=== PATIENT | female | born 1955 | race Caucasian/White ===

== ENCOUNTER → 2019-05-19 13:58 | Outpatient (BNVA) | payer OTHER, SELFPAY | PROVIDERS: Family Provider Nurse Practitioner Family; PCP Nurse Practitioner Family; Visit Provider Nurse Practitioner Family | DX: E07.9 Disorder of thyroid, unspecified (principal) | CPT/HCPCS: 84443 ==

== ENCOUNTER 2019-05-31 11:58 | Outpatient (CLI) | payer OTHER, SELFPAY ==
[2019-05-31 12:38] LABS: Basophils % 0.7 %; Eosinophils # 0.2 10^3/uL (0.0-0.8); Eosinophils % 5.4 %; Hemoglobin 11.2 g/dL (11.5-15.3); Lymphocytes # 0.6 10^3/uL (0.8-4.8); Lymphocytes % 13.3 %; Mean Corpuscular HGB Conc 30.3 g/dL (30.0-36.0); Mean Corpuscular Hemoglobin 27.9 pg (28.0-34.0); Mean Corpuscular Volume 92.3 fL (81-99); Mean Platelet Volume 10.2 fL (7.4-10.4); Monocytes # 0.5 10^3/uL (0.2-0.9); Monocytes % 11.3 %; Neutrophils # 3.1 10^3/uL (1.8-7.7); Neutrophils % 69.1 %; Nucleated Red Blood Cells % 0 %; Platelet Count 155 10^3/cmm (130-400); Red Blood Count 4.01 10^6/uL (4.1-5.3); Red Cell Distribution Width 15.3 % (12.1-15.1); White Blood Count 4.4 10^3/uL (4.0-10.0)
[2019-05-31 12:43] LABS: Alanine Aminotransferase 11 U/L (0-33); Alkaline Phosphatase 90 IU/L (35-105); Anion Gap 13.9 (5-19); Aspartate Amino Transferase 22 U/L (0-32); Blood Urea Nitrogen 17 mg/dL (8-23); Calcium 9.8 mg/Dl (8.8-10.2); Carbon Dioxide 28 mmol/L (22-29); Chloride 103 mmol/L (98-107); Globulin 2.5 g/dL (1.3-4.6); Glomerular Filtration Rate 55.8 mL/min (90-130); Glucose 90 mg/dL (74-106); Potassium 3.9 mmol/L (3.5-5.1); Sodium 141 mmol/L (136-145); Total Bilirubin 0.2 mg/dL (0.15-1.2); Total Protein 6.5 g/dL (6.6-8.7)
--- NOTE | 2019-05-31 16:36 | ONC FU_ITS ---
Dr. Prince follow up note Patient: Maryana Downs Unit #: [id number]: 1955 Dicatated By: Jose A Prince M.D.Date of Visit:May 31, 2019 Onc Med Follow-up/Prog Note History of Present Illness: Mrs. Maryana Downs, is a 64-year-old female, recently underwent colonoscopy examination on March 28 which showed in sigmoid colon at 55 centimeters there was a circumferential obstructive mass, beyond this the colonoscopy could not be advanced and biopsy was obtained which confirmed adenocarcinoma subsequently on 04/05/2019 she underwent laparoscopic sigmoid colectomy with end to end anastomosis and final pathology report confirmed infiltrating adenocarcinoma, low-grade, focal penetration through muscularis propria into superficial serosal connective tissue, tumor size 5 x 3 x 1 cm with clear surgical margins T3 and 0 out of 9 lymph node examined showed metastatic disease N0, positive lymphovascular invasion but no venous invasion seen. MSI/MMR status was ordered Came for follow-up, denies any specific complaints, no fever or chills, no nausea or vomiting, no diarrhea constipation, no jaundice. Patient was referred to [facility] but second opinion regarding clinical trials but patient decided not to go and also decided not consider adjuvant chemotherapy. She is here to discuss follow-up plan. Medications: B-12 2 Tablet (of 500 mcg) Oral daily, Levothyroxine Sodium 1 Tablet (of 50 mcg) Oral daily, Pycnogenol 2 Tablet (of 100 mg) Capsule Oral daily, Vitamin C 1 Capsule Oral daily Allergies: No Known Allergies. Review of Systems: Constitutional - Appetite is good, weight is stable. No fever, chills or night sweats. Positive for hot flashes. Energy level is good, ENMT - No sinus congestion/drainage. No mouth sores. No sore throat or difficulty swallowing, Hematologic/Lymphatic - No abnormal bruising or bleeding, Respiratory - No shortness of breath. No cough. No pleuritic pain or hemoptysis, Cardiovascular - No angina pain. No palpitations, Gastrointestinal - No nausea or vomiting. No heartburn or acid reflux. Positive for diarrhea, no constipation. No blood in the stool or black stools, Genitourinary (F) - No dysuria or hematuria. No urinary frequency. No urgency or incontinence, Musculoskeletal - No joint or bone pain, Neurologic - No headache or dizziness. No numbness/paresthesias or other focal neurologic symptoms, Psychiatric - No anxiety or depression. No insomnia. Vital Signs: Performed on May 31, 2019 13:38 Height - 59.00 in Weight - 187.4 lbs (HIGH) BSA - 1.79 sq.m BMI - 37.85 (HIGH) Temperature - 99.3 F (HIGH) Pulse - 77 /min Respiration - 20 /min BP - 108/61 mm(hg) O2 Sat - 98 % Pain - 0 Performance Status: 0 - Fully active, able to carry on all predisease activities without restrictions. (ECOG) Physical Examination: Respiratory - Lungs are clear to auscultation without rhonchi or wheezing, Cardiovascular - Regular rate and rhythm of heart, Abdomen - Non-tender, non-distended, Good bowel sounds. No guarding or rebound tenderness. No pulsatile masses, Extremities - no edema. Lab/Imaging: Most recent lab results are not available for this patient. Impression: infiltrating adenocarcinoma involving sigmoid colon status post laparoscopic sigmoidectomy done on 04/05/2019 Final pathology report showed low-grade, focal penetration through muscularis propria into superficial serosal connective tissues, clear surgical margin, tumor size 5 x 3 x 1 cm pT3 0/9 lymph node showed metastatic disease pN0 Lymphovascular invasion seen, but no venous invasion seen Colonoscopy examination done on 03/28/2019 shows near obstructive lesion, scope could not advance beyond the lesion CT scan of abdomen pelvis done on 03/30/2019 showed extensive diverticulosis of lower descending colon and sigmoid colon no definite tumor was seen , liver was unremarkable Stage IIA (T3, N0 Mx) high risk, (being near obstructive lesion at the time of presentation, lymphovascular invasion present, 9 instead of 12 lymph node were removed and examined.) Plan: Discussed with patient regarding her labs white blood count 4.4 hemoglobin 11.2 crit 37 platelets 155,000 CMP within normal limits Clinically, patient is doing well with no signs symptoms suggestive of recurrence of disease. Patient was offered adjuvant chemotherapy for being high risk e.g. near obstructive lesion at presentation, lymphovascular involvement, 9 instead of 12 lymph nodes were examined showed no metastatic disease. Patient declined adjuvant chemotherapy, and she was referred to GI oncology at [facility] in [place] for second opinion regarding clinical trial for high risk stage II colon cancer patient declined that too and decided not to pursue any adjuvant therapy rather consider observation alone. Today we have discussion again and now she agreed to go to GI oncology at [facility] for evaluation for clinical trial or second opinion. Next Return to clinic 1 week after her visit to [place] Signed By: Jose A Prince M.D. <<Signature on File>>
== END 2019-05-31 11:59 | disposition home or self-care (01) ==
LOC: ONCMED 12:02
PROVIDERS: Family Provider Nurse Practitioner Family; PCP Nurse Practitioner Family; Visit Provider Internal Medicine Hematology & Oncology
DX: C18.7 Malignant neoplasm of sigmoid colon (principal); Z90.49 Acquired absence of other specified parts of digestive tract
CPT/HCPCS: 36415; 80053; 85025; G0463

== ENCOUNTER 2019-06-28 15:39 | Outpatient (CLI) | payer OTHER, SELFPAY ==
[2019-06-28 15:54] LABS: Basophils % 0.5 %; Eosinophils # 0.3 10^3/uL (0.0-0.8); Eosinophils % 5.7 %; Hematocrit 37.6 % (37.0-47.0); Hemoglobin 11.7 g/dL (11.5-15.3); Lymphocytes % 17.7 %; Mean Corpuscular HGB Conc 31.1 g/dL (30.0-36.0); Mean Corpuscular Hemoglobin 27.5 pg (28.0-34.0); Mean Corpuscular Volume 88.3 fL (81-99); Mean Platelet Volume 9.8 fL (7.4-10.4); Monocytes # 0.6 10^3/uL (0.2-0.9); Monocytes % 10.1 %; Neutrophils # 3.7 10^3/uL (1.8-7.7); Neutrophils % 65.8 %; Nucleated Red Blood Cells % 0 %; Platelet Count 197 10^3/cmm (130-400); Red Blood Count 4.26 10^6/uL (4.1-5.3); Red Cell Distribution Width 14.6 % (12.1-15.1); White Blood Count 5.6 10^3/uL (4.0-10.0)
[2019-06-28 16:15] LABS: Alanine Aminotransferase 9 U/L (0-33); Albumin Level 4.2 g/dL (3.5-5.2); Alkaline Phosphatase 82 IU/L (35-105); Anion Gap 14.8 (5-19); Aspartate Amino Transferase 17 U/L (0-32); Blood Urea Nitrogen 20 mg/dL (8-23); Calcium 9.9 mg/dL (8.5-10.5); Carbon Dioxide 29 mmol/L (22-29); Chloride 102 mmol/L (98-107); Globulin 2.7 g/dL (1.3-4.6); Glomerular Filtration Rate 84.2 mL/min (90-130); Glucose 84 mg/dL (65-115); Potassium 3.8 mmol/L (3.5-5.1); Sodium 142 mmol/L (136-145); Total Bilirubin 0.2 mg/dL (0.15-1.2); Total Protein 6.9 g/dL (6.6-8.7)
--- NOTE | 2019-06-28 16:58 | ONC FU_ITS ---
Dr. Prince follow up note Patient: Maryana Downs Unit #: [id number]: 1955 Dicatated By: Jose A Prince M.D.Date of Visit:Jun 28, 2019 Onc Med Follow-up/Prog Note History of Present Illness: Mrs. Maryana Downs, is a 64-year-old female, recently underwent colonoscopy examination on March 28 which showed in sigmoid colon at 55 centimeters there was a circumferential obstructive mass, beyond this the colonoscopy could not be advanced and biopsy was obtained which confirmed adenocarcinoma subsequently on 04/05/2019 she underwent laparoscopic sigmoid colectomy with end to end anastomosis and final pathology report confirmed infiltrating adenocarcinoma, low-grade, focal penetration through muscularis propria into superficial serosal connective tissue, tumor size 5 x 3 x 1 cm with clear surgical margins T3 and 0 out of 9 lymph node examined showed metastatic disease N0, positive lymphovascular invasion but no venous invasion seen. MSI/MMR status intact Finally patient went to [facility] for second opinion and saw Dr. John Torrez on 06/23/2019 and she recommended adjuvant chemotherapy with 4 cycles of CAPOX but patient refused oxaliplatin but agreed for Xeloda alone. Came for follow-up, denies any specific complaints, no fever or chills, no nausea or vomiting, no diarrhea constipation, no jaundice or abdominal pain. Patient said she is scheduled for follow-up colonoscopy in July 2019 as initial colonoscopy was a poor prep. Medications: B-12 2 Tablet (of 500 mcg) Oral daily, Levothyroxine Sodium 1 Tablet (of 50 mcg) Oral daily, Pycnogenol 2 Tablet (of 100 mg) Capsule Oral daily, Vitamin C 1 Capsule Oral daily Allergies: No Known Allergies. Review of Systems: Constitutional - Appetite is good, weight is stable. No fever, chills or night sweats. Positive for hot flashes. Energy level is good, ENMT - No sinus congestion/drainage. No mouth sores. No sore throat or difficulty swallowing, Hematologic/Lymphatic - No abnormal bruising or bleeding, Respiratory - No shortness of breath. No cough. No pleuritic pain or hemoptysis, Cardiovascular - No angina pain. No palpitations, Gastrointestinal - No nausea or vomiting. No heartburn or acid reflux. Positive for diarrhea, no constipation. No blood in the stool or black stools, Genitourinary (F) - No dysuria or hematuria. No urinary frequency. No urgency or incontinence, Musculoskeletal - No joint or bone pain, Neurologic - No headache or dizziness. No numbness/paresthesias or other focal neurologic symptoms, Psychiatric - No anxiety or depression. No insomnia. Vital Signs: Performed on Jun 28, 2019 15:58 Height - 59.00 in Weight - 184.8 lbs (LOW) BSA - 1.78 sq.m BMI - 37.33 (HIGH) Temperature - 98.8 F Pulse - 65 /min Respiration - 14 /min BP - 95/56 mm(hg) O2 Sat - 97 % Pain - 0 Fatigue - 1 Performance Status: 0 - Fully active, able to carry on all predisease activities without restrictions. (ECOG) Physical Examination: ENMT - No oral exudates, ulcers, masses, thrush or mucositis. Oropharynx clear. Tongue normal, Respiratory - Lungs are clear to auscultation without rhonchi or wheezing, Cardiovascular - Regular rate and rhythm of heart, Abdomen - Non-tender, non-distended, Good bowel sounds. No guarding or rebound tenderness. No pulsatile masses, Extremities - no edema. Lab/Imaging: Test performed on May 31, 2019 12:10 Sodium 141 mmol/L Potassium 3.9 mmol/L Chloride 103 mmol/L CO2 28 mmol/L Anion Gap 13.9 BUN 17 mg/dL Creatinine 1.0 mg/dL Cr Clearance (Est) 73.0900 mL/min eGFR 55.8 mL/min Glucose 90 mg/dL Calcium 9.8 mg/Dl Protein, Total 6.5 g/dL Albumin 4.0 g/dL Globulin 2.5 g/dL Bilirubin, Total 0.2 mg/dL ALT (SGPT) 11 U/L AST (SGOT) 22 U/L WBC 4.4 10 3/uL RBC 4.01 10 6/uL HGB 11.2 g/dL HCT 37.0 % MCV 92.3 fL MCH 27.9 pg MCHC 30.3 g/dL RDW 15.3 % Platelet Count 155 10 3/cmm MPV 10.2 fL Neutrophils 3.1 10 3/uL Lymphocytes 0.6 10 3/uL Monocytes 0.5 10 3/uL Eosinophils 0.2 10 3/uL Basophils 0.0 10 3/uL Neutrophil % 69.1 % Lymphocyte % 13.3 % Monocyte % 11.3 % Eosinophil % 5.4 % Basophils % 0.7 % Impression: infiltrating adenocarcinoma involving sigmoid colon status post laparoscopic sigmoidectomy done on 04/05/2019 Final pathology report showed low-grade, focal penetration through muscularis propria into superficial serosal connective tissues, clear surgical margin, tumor size 5 x 3 x 1 cm pT3 0/9 lymph node showed metastatic disease pN0 Lymphovascular invasion seen, but no venous invasion seen Colonoscopy examination done on 03/28/2019 shows near obstructive lesion, scope could not advance beyond the lesion CT scan of abdomen pelvis done on 03/30/2019 showed extensive diverticulosis of lower descending colon and sigmoid colon no definite tumor was seen , liver was unremarkable Stage IIA (T3, N0 Mx) high risk, (being near obstructive lesion at the time of presentation, lymphovascular invasion present, 9 instead of 12 lymph node were removed and examined.) Plan: Discussed with patient regarding her labs white blood count 5.6 on 11.7 crit 37.6 platelets 197,000 CMP within normal limits Clinically, patient is doing well, with no signs symptoms suggestive of recurrence of disease. Patient was referred to GI oncology at [facility] in [facility] where she saw Dr. John Torrez on 06/23/2019,. And she was recommended adjuvant chemotherapy with CAPOX ???4 cycles but patient declined oxaliplatin but agreed for Xeloda alone. We have long discussion today regarding the preferred treatment protocol which is oxaliplatin/Xeloda patient was encouraged to try oxaliplatin and if she has any related side effect then to discontinue followed by Xeloda alone but patient refused knowing the risk versus benefits but agreed for Xeloda alone. All the side effect possible benefits associated with Xeloda were discussed again, which include bone marrow suppression, [id number] syndrome, liver toxicity, mouth sores, diarrhea and cardiac toxicity and further teaching will be done by chemotherapy nurse. At this point we'll consider Xeloda 1250 mg/m??? day 1 through 14 and repeat every 21 days ???6-8 cycles. Patient return to clinic 1 week after chemotherapy is initiated with CBC CMP. Signed By: Jose A Prince M.D. <<Signature on File>>
== END 2019-06-28 15:40 | disposition home or self-care (01) ==
LOC: ONCMED 15:39
PROVIDERS: Visit Provider Internal Medicine Hematology & Oncology
DX: C18.7 Malignant neoplasm of sigmoid colon (principal); Z79.899 Other long term (current) drug therapy; Z90.49 Acquired absence of other specified parts of digestive tract
CPT/HCPCS: 36415; 80053; 85025; 99214

== ENCOUNTER 2019-07-07 09:10 | Outpatient (CLI) | payer OTHER, SELFPAY ==
--- NOTE | 2019-07-16 16:54 | ONC FU_ITS ---
[facility] Patient Note Patient: Maryana Downs Unit #: [id number]: 1955 Dictated By: Elmer BirdDate of Visit: Jul 07, 2019 Onc MED Follow-Up/Prog Note Chief Complaint: Colon cancer History of Present Illness: Mrs. Downs is a 64-year-old female that underwent colonoscopy examination on March 28, 2019 which showed in sigmoid colon at 55 centimeters a circumferential obstructive mass. Beyond this, the colonoscopy could not be advanced and biopsy was obtained which confirmed adenocarcinoma. Subsequently on 04/05/2019, she underwent laparoscopic sigmoid colectomy with end to end anastomosis. The final pathology report confirmed infiltrating adenocarcinoma, low-grade, focal penetration through muscularis propria into superficial serosal connective tissue. The tumor size 5 x 3 x 1 cm with clear surgical margins T3 and 0 out of 9 lymph node examined showed metastatic disease N0, positive lymphovascular invasion but no venous invasion seen. MSI/MMR status intact Ms Downs went to [facility] for second opinion and saw Dr. John Torrez on 06/23/2019. Dr Torrez recommended adjuvant chemotherapy with 4 cycles of CAPOX but patient refused oxaliplatin but agreed for Xeloda alone. Dr Prince has offered her treatment with single agent (since she declines oxaliplatin) Xeloda 1250 mg/m??? day 1 through 14 and repeat every 21 days ???6-8 cycles. Ms Downs reports that she is scheduled for follow-up colonoscopy in July 2019 as initial colonoscopy was a poor prep. Ms. Downs is here today for follow-up. She has received the Xeloda and is due to start taking that today or tomorrow. She states overall she is feeling really good. She denies any fever or chills. She remains very active. She states her appetite is good. She denies any pain. She denies nausea or vomiting. She denies diarrhea or constipation. She states that she is using Swerve for sugar substitute and this works great for her. She states it takes just like natural sugar. She also reports she is taking pycongenol-a natural supplement. Her ECOG is 0. She states she is aware of the recommended plan of Xeloda and oxaliplatin. She has elected just to pursue single agent Xeloda Past Medical History: Anxiety Depression Hypothyroidism Past Surgical History: Hysterectomy/bilateral salpingectomy-oophorectomy Sigmoid colectomy Tonsillectomy Tubal ligation Colonoscopy in 2019 Allergies: No Known Allergies. Medications: B-12 2 Tablet (of 500 mcg) Oral daily Levothyroxine Sodium 1 Tablet (of 50 mcg) Oral daily Pycnogenol 2 Tablet (of 100 mg) Capsule Oral daily Vitamin C 1 Capsule Oral daily Family History: Ms. Downs's mother at age 74: heart disease. Ms. Downs's father at age 76: type II diabetes. Social History: Ms. Downs is and she is retired. Ms. Downs quit smoking 9 years ago but had smoked for 34 years. She has no history of drinking. Ms. Downs reports the following support systems: lives with spouse, significant other, family, or friends, lives in own house, supportive family/friends willing to assist with needs, and adequate transportation available for expected visits. Her diet consists of regular meals. She indicates her activity level as: regular exercise. Review Of Symptoms: Constitutional Denies fevers, chills, night sweats, excessive fatigue or weight loss. Allergic/Immunologic No reactions. Eyes Denies significant visual changes. No diplopia. No amaurosis. ENMT Denies changes in hearing, sore throat, mouth sores, difficulty or changes in swallowing ability, and/or sinus drainage. Hematologic/Lymphatic Denies easy bruising or bleeding. The patient denies any tender or palpable lymph nodes. Respiratory Denies dyspnea on exertion, chest pain, cough or hemoptysis. Denies orthopnea. Cardiovascular Denies anginal chest pain, palpitations or orthopnea. Gastrointestinal Denies nausea, vomiting, diarrhea, GI bleeding, or constipation. Denies change in bowel habits and/or stool color, no heartburn or early satiety. Genitourinary (F) No hematuria, hesitancy, incontinence, vaginal bleeding, discharge or other problems with urination. Musculoskeletal Denies joint pain, swelling or redness. No decreased range of motion. Integumentary Denies chronic rashes, inflammation, ulcerations or skin changes. Neurologic Denies headache, blurred vision, and no areas of focal weakness or numbness. Normal gait. No sensory problems. Psychiatric Denies insomnia, depression, katelyn or mood swings. Vital Signs: Performed on Jul 07, 2019 09:56 Height - 59.00 in Weight - 185.0 lbs (HIGH) BSA - 1.78 sq.m BMI - 37.37 (HIGH) Temperature - 98.4 F Pulse - 56 /min (LOW) Respiration - 16 /min BP - 112/51 mm(hg) O2 Sat - 97 % Pain - 0 Fatigue - 1,1 - No physically strenuous activity, but ambulatory and able to carry out light or sedentary work (e.g. office work, light house work). (ECOG) Physical Examination: Constitutional Alert, oriented, no acute distress. Skin pink, warm and dry. Head Normocephalic; atraumatic. Eyes Conjunctivae and sclerae are clear and without icterus. Pupils are reactive and equal. ENMT No oral exudates, ulcers, masses, thrush or mucositis. Oropharynx clear. Tongue normal. Neck Supple without masses or thyromegaly. No jugular venous distension. Hematologic/Lymphatic No petechiae or purpura. No tender or palpable lymph nodes in the cervical or supraclavicular areas. Respiratory Lungs are clear to auscultation without rhonchi or wheezing. Cardiovascular Regular rate and rhythm of heart without murmurs,clicks, gallops or rubs. Abdomen Non-tender, non-distended, no masses or ascites. Good bowel sounds noted in all quads. No guarding or rebound tenderness. No pulsatile masses. Back/Spine Non-tender to palpation. Extremities No visible deformities, no cyanosis, clubbing or edema. Musculoskeletal No tenderness or swelling, normal range of motion without obvious weakness. Integumentary No rashes or lesions. Neurologic No sensory or motor deficits, normal cerebellar function, normal gait. Psychiatric Alert and oriented times three. Coherent speech. Verbalizes understanding of our discussions today. Laboratory:Test performed on Jun 28, 2019 15:43 Sodium 142 mmol/L Potassium 3.8 mmol/L Chloride 102 mmol/L CO2 29 mmol/L Anion Gap 14.8 BUN 20 mg/dL Creatinine 0.7 mg/dL Cr Clearance (Est) 107.4400 mL/min eGFR 84.2 mL/min Glucose 84 mg/dL Calcium 9.9 mg/dL Protein, Total 6.9 g/dL Albumin 4.2 g/dL Globulin 2.7 g/dL Bilirubin, Total 0.2 mg/dL ALT (SGPT) 9 U/L AST (SGOT) 17 U/L Alkaline Phosphatase 82 IU/L WBC 5.6 10 3/uL RBC 4.26 10 6/uL HGB 11.7 g/dL HCT 37.6 % MCV 88.3 fL MCH 27.5 pg MCHC 31.1 g/dL RDW 14.6 % Platelet Count 197 10 3/cmm MPV 9.8 fL Neutrophils 3.7 10 3/uL Lymphocytes 1.0 10 3/uL Monocytes 0.6 10 3/uL Eosinophils 0.3 10 3/uL Basophils 0.0 10 3/uL Neutrophil % 65.8 % Lymphocyte % 17.7 % Monocyte % 10.1 % Eosinophil % 5.7 % Basophils % 0.5 % Impression: infiltrating adenocarcinoma involving sigmoid colon status post laparoscopic sigmoidectomy done on 04/05/2019 Final pathology report showed low-grade, focal penetration through muscularis propria into superficial serosal connective tissues, clear surgical margin, tumor size 5 x 3 x 1 cm pT3 0/9 lymph node showed metastatic disease pN0 Lymphovascular invasion seen, but no venous invasion seen Colonoscopy examination done on 03/28/2019 shows near obstructive lesion, scope could not advance beyond the lesion CT scan of abdomen pelvis done on 03/30/2019 showed extensive diverticulosis of lower descending colon and sigmoid colon no definite tumor was seen , liver was unremarkable Stage IIA (T3, N0 Mx) high risk, (being near obstructive lesion at the time of presentation, lymphovascular invasion present, 9 instead of 12 lymph node were removed and examined.) Clinically, Ms Downs is doing well, with no signs symptoms suggestive of recurrence of disease. She was referred to GI oncology at [facility] in [facility] where she saw Dr. John Torrez on 06/23/2019. Dr Torrez recommended adjuvant chemotherapy with CAPOX ???4 cycles but patient declined oxaliplatin but agreed for Xeloda alone. Dr Prince has recommended Xeloda 1250 mg/m??? day 1 through 14 and repeat every 21 days ???6-8 cycles. She continues to decline the oxaliplatin. Plan: 1. Proceed with Xeloda 2150 mg BID for 14 days then off for 7. 2. Compazine and Ativan as needed for antiemetics at home. 3. AVOID GRAPEFRUIT PRODUCTS WITH XELODA 4. Saqib will need weekly CBC CMP and she could have this done via home labs. 5. We will plan to see her back in 1 week for day 8 follow-up and plan to see her back in 3 weeks for cycle 2 Xeloda. 6. Mrs. Downs was instructed to contact us in interim should questions or problems arise. 7. We discussed controlling diarrhea should it develop. She verbalized understanding. 8. Ms Downs had drug education via [facility] oncology pharmacist. She has no questions at this time. Signed By: Elmer Bird-, AOCNP Jose A Prince MD <<Signature on File>>
== END 2019-07-07 09:11 | disposition home or self-care (01) ==
LOC: ONCMED 09:13
PROVIDERS: Visit Provider Nurse Practitioner
DX: C18.7 Malignant neoplasm of sigmoid colon (principal); F41.8 Other specified anxiety disorders; E03.9 Hypothyroidism, unspecified; K57.30 Diverticulosis of large intestine without perforation or abscess without bleeding; Z79.899 Other long term (current) drug therapy; Z90.49 Acquired absence of other specified parts of digestive tract; Z87.891 Personal history of nicotine dependence
CPT/HCPCS: 99214

== ENCOUNTER 2019-07-15 12:26 | Outpatient (CLI) | payer OTHER, SELFPAY ==
[2019-07-15 11:07] LABS: Basophils % 0.7 %; Eosinophils # 0.2 10^3/uL (0.0-0.8); Eosinophils % 5.1 %; Hematocrit 41.6 % (37.0-47.0); Hemoglobin 12.6 g/dL (11.5-15.3); Lymphocytes # 0.9 10^3/uL (0.8-4.8); Lymphocytes % 20.4 %; Mean Corpuscular HGB Conc 30.3 g/dL (30.0-36.0); Mean Corpuscular Hemoglobin 26.7 pg (28.0-34.0); Mean Corpuscular Volume 88.1 fL (81-99); Mean Platelet Volume 10.6 fL (7.4-10.4); Monocytes # 0.4 10^3/uL (0.2-0.9); Monocytes % 8.9 %; Neutrophils # 2.9 10^3/uL (1.8-7.7); Neutrophils % 64.9 %; Nucleated Red Blood Cells % 0 %; Platelet Count 241 10^3/cmm (130-400); Red Blood Count 4.72 10^6/uL (4.1-5.3); Red Cell Distribution Width 14.4 % (12.1-15.1); White Blood Count 4.5 10^3/uL (4.0-10.0)
[2019-07-15 11:31] LABS: Alanine Aminotransferase 7 U/L (0-33); Albumin Level 4.2 g/dL (3.5-5.2); Alkaline Phosphatase 78 IU/L (35-105); Anion Gap 17.4 (5-19); Aspartate Amino Transferase 18 U/L (0-32); Blood Urea Nitrogen 17 mg/dL (8-23); Calcium 9.9 mg/dL (8.5-10.5); Carbon Dioxide 27 mmol/L (22-29); Chloride 100 mmol/L (98-107); Globulin 3.4 g/dL (1.3-4.6); Glomerular Filtration Rate 84.2 mL/min (90-130); Glucose 90 mg/dL (65-115); Potassium 4.4 mmol/L (3.5-5.1); Sodium 140 mmol/L (136-145); Total Bilirubin 0.3 mg/dL (0.15-1.2); Total Protein 7.6 g/dL (6.6-8.7)
== END 2019-07-15 12:27 | disposition home or self-care (01) ==
LOC: ONCMED 12:26
PROVIDERS: Visit Provider Internal Medicine Hematology & Oncology
DX: C18.7 Malignant neoplasm of sigmoid colon (principal)
CPT/HCPCS: 80053; 85025

== ENCOUNTER 2019-07-18 11:26 | Outpatient (CLI) | payer OTHER, SELFPAY ==
--- NOTE | 2019-07-18 21:15 | ONC FU_ITS ---
[facility] Patient Note Patient: Maryana Downs Unit #: [id number]: 1955 Dictated By: Elmer BirdDate of Visit: Jul 18, 2019 Onc MED Follow-Up/Prog Note Chief Complaint: Colon cancer History of Present Illness: Mrs. Downs is a 64-year-old female that underwent colonoscopy examination on March 28, 2019 which showed in sigmoid colon at 55 centimeters a circumferential obstructive mass. Beyond this, the colonoscopy could not be advanced and biopsy was obtained which confirmed adenocarcinoma. Subsequently on 04/05/2019, she underwent laparoscopic sigmoid colectomy with end to end anastomosis. The final pathology report confirmed infiltrating adenocarcinoma, low-grade, focal penetration through muscularis propria into superficial serosal connective tissue. The tumor size 5 x 3 x 1 cm with clear surgical margins T3 and 0 out of 9 lymph node examined showed metastatic disease N0, positive lymphovascular invasion but no venous invasion seen. MSI/MMR status intact. Ms Downs went to [facility] for second opinion and saw Dr. John Torrez on 06/23/2019. Dr Torrez recommended adjuvant chemotherapy with 4 cycles of CAPOX but patient refused oxaliplatin but agreed for Xeloda alone. Dr Prince has offered her treatment with single agent (since she declines oxaliplatin) Xeloda 1250 mg/m??? day 1 through 14 and repeat every 21 days ???6-8 cycles. Ms Downs reports that she is scheduled for follow-up colonoscopy on July 26, 2019 as initial colonoscopy was a poor prep. Ms. Downs is here today for follow-up. She began her first cycle of Xeloda on July 11, 2019. This is day 8. She states overall she is doing well. She states it has not affected her energy. She has good energy. She is able to do all of her ADLs without any assistance. She does have occasional fatigue but states recovers well with rest. She denies any nausea or vomiting. She has had no taste changes. She denies any fever or chills. She is had no skin changes. She states in general she does not feel that she is taking any oral chemo at all as she is doing so well. She has no concerns today. She had emailed in concerning with some weight gain but her weight is stable. She did have a thyroid dose change in May and that has not been reevaluated with a follow-up TSH. Will attempt at that to the blood in the lab if possible today. Her ECOG is 0. Past Medical History: Anxiety Depression Hypothyroidism Past Surgical History: Hysterectomy/bilateral salpingectomy-oophorectomy Sigmoid colectomy Tonsillectomy Tubal ligation Colonoscopy in 2019 Allergies: No Known Allergies. Medications: B-12 2 Tablet (of 500 mcg) Oral daily Levothyroxine Sodium 1 Tablet (of 50 mcg) Oral daily Prochlorperazine Maleate 1 Tablet (of 10 mg) Oral q 4 hours PRN Pycnogenol 2 Tablet (of 100 mg) Capsule Oral daily Vitamin C 1 Capsule Oral daily Family History: Ms. Downs's mother at age 74: heart disease. Ms. Downs's father at age 76: type II diabetes. Social History: Ms. Downs is and she is retired. Ms. Downs quit smoking 9 years ago but had smoked for 34 years. She has no history of drinking. Ms. Downs reports the following support systems: lives with spouse, significant other, family, or friends, lives in own house, supportive family/friends willing to assist with needs, and adequate transportation available for expected visits. Her diet consists of regular meals. She indicates her activity level as: regular exercise. Review Of Symptoms: Constitutional Denies fevers, chills, night sweats, excessive fatigue or weight loss. Allergic/Immunologic No reactions. Eyes Denies significant visual changes. No diplopia. No amaurosis. ENMT Denies changes in hearing, sore throat, mouth sores, difficulty or changes in swallowing ability, and/or sinus drainage. Hematologic/Lymphatic Denies easy bruising or bleeding. The patient denies any tender or palpable lymph nodes. Respiratory Denies dyspnea on exertion, chest pain, cough or hemoptysis. Denies orthopnea. Cardiovascular Denies anginal chest pain, palpitations or orthopnea. Gastrointestinal Denies nausea, vomiting, diarrhea, GI bleeding, or constipation. Denies change in bowel habits and/or stool color, no heartburn or early satiety. Genitourinary (F) No hematuria, hesitancy, incontinence, vaginal bleeding, discharge or other problems with urination. Musculoskeletal Denies joint pain, swelling or redness. No decreased range of motion. Integumentary Denies chronic rashes, inflammation, ulcerations or skin changes. Neurologic Denies headache, blurred vision, and no areas of focal weakness or numbness. Normal gait. No sensory problems. Psychiatric Denies insomnia, depression, katelyn or mood swings. Vital Signs: Performed on Jul 18, 2019 11:41 Height - 59.00 in Weight - 185.0 lbs BSA - 1.78 sq.m BMI - 37.37 (HIGH) Temperature - 98.8 F Pulse - 69 /min Respiration - 18 /min BP - 103/46 mm(hg) O2 Sat - 100 % Pain - 0,0 - Fully active, able to carry on all predisease activities without restrictions. (ECOG) Physical Examination: Constitutional Alert, oriented, no acute distress. Skin pink, warm and dry. Head Normocephalic; atraumatic. Eyes Conjunctivae and sclerae are clear and without icterus. Pupils are reactive and equal. ENMT No oral exudates, ulcers, masses, thrush or mucositis. Oropharynx clear. Tongue normal. Neck Supple without masses or thyromegaly. No jugular venous distension. Hematologic/Lymphatic No petechiae or purpura. No tender or palpable lymph nodes in the cervical or supraclavicular areas. Respiratory Lungs are clear to auscultation without rhonchi or wheezing. Cardiovascular Regular rate and rhythm of heart without murmurs,clicks, gallops or rubs. Abdomen Non-tender, non-distended, no masses or ascites. Back/Spine Non-tender to palpation. Extremities No visible deformities, no cyanosis, clubbing or edema. Musculoskeletal No tenderness or swelling, normal range of motion without obvious weakness. Integumentary No rashes or lesions. Neurologic No sensory or motor deficits, normal cerebellar function, normal gait. Psychiatric Alert and oriented times three. Coherent speech. Verbalizes understanding of our discussions today. Laboratory:Test performed on Jul 15, 2019 07:30 Sodium 140 mmol/L Potassium 4.4 mmol/L Chloride 100 mmol/L CO2 27 mmol/L Anion Gap 17.4 BUN 17 mg/dL Creatinine 0.7 mg/dL Cr Clearance (Est) 107.5600 mL/min eGFR 84.2 mL/min Glucose 90 mg/dL Calcium 9.9 mg/dL Protein, Total 7.6 g/dL Albumin 4.2 g/dL Globulin 3.4 g/dL Bilirubin, Total 0.3 mg/dL ALT (SGPT) 7 U/L AST (SGOT) 18 U/L Alkaline Phosphatase 78 IU/L WBC 4.5 10 3/uL RBC 4.72 10 6/uL HGB 12.6 g/dL HCT 41.6 % MCV 88.1 fL MCH 26.7 pg MCHC 30.3 g/dL RDW 14.4 % Platelet Count 241 10 3/cmm MPV 10.6 fL Neutrophils 2.9 10 3/uL Lymphocytes 0.9 10 3/uL Monocytes 0.4 10 3/uL Eosinophils 0.2 10 3/uL Basophils 0.0 10 3/uL Neutrophil % 64.9 % Lymphocyte % 20.4 % Monocyte % 8.9 % Eosinophil % 5.1 % Basophils % 0.7 % Impression: infiltrating adenocarcinoma involving sigmoid colon status post laparoscopic sigmoidectomy done on 04/05/2019 Final pathology report showed low-grade, focal penetration through muscularis propria into superficial serosal connective tissues, clear surgical margin, tumor size 5 x 3 x 1 cm pT3 0/9 lymph node showed metastatic disease pN0 Lymphovascular invasion seen, but no venous invasion seen Colonoscopy examination done on 03/28/2019 shows near obstructive lesion, scope could not advance beyond the lesion CT scan of abdomen pelvis done on 03/30/2019 showed extensive diverticulosis of lower descending colon and sigmoid colon no definite tumor was seen , liver was unremarkable Stage IIA (T3, N0 Mx) high risk, (being near obstructive lesion at the time of presentation, lymphovascular invasion present, 9 instead of 12 lymph node were removed and examined.) Clinically, Ms Downs is doing well, with no signs symptoms suggestive of recurrence of disease. She was referred to GI oncology at [facility] in [facility] where she saw Dr. John Torrez on 06/23/2019. Dr Torrez recommended adjuvant chemotherapy with CAPOX ???4 cycles but patient declined oxaliplatin but agreed for Xeloda alone. Dr Prince has recommended Xeloda 1250 mg/m??? day 1 through 14 and repeat every 21 days ???6-8 cycles. She opted to decline the oxaliplatin. Mrs. Downs is doing single agent Xeloda and started this on July 11, 2019. She is tolerating it well thus far. Plan: 1. Proceed with Xeloda 2150 mg BID for 14 days then off for 7. This is day 8. 2. Compazine and Ativan as needed for antiemetics at home. 3. AVOID GRAPEFRUIT PRODUCTS WITH XELODA 4. Labs from July 14 were reviewed in detail and discussed with Ms. Downs and a copy was given to her. WBC 4.5, hemoglobin 12.6, platelets 241,000, ANC is 2900. Potassium 4.4, creatinine 0.7 and LFTs are normal. 5. We will plan to see her back in 1 week for day 8 follow-up and plan to see her back in 2 weeks for cycle 2 Xeloda. 6. Mrs. Downs was instructed to contact us in interim should questions or problems arise. 7. We discussed controlling diarrhea should it develop. She verbalized understanding. 8. She states she has a colonoscopy scheduled for 07/26/[address] Thacker. She also so states she is having a [employer] screening at the end of July. It is a packet she purchased from a private screening agency. She thinks it includes a bone density and possibly carotid ultrasound. She states that she will get copies of the results and will bring those to us once they are available. 9. Unfortunately we were unable to add the TSH to the blood in the lab today as a specimen had been inadvertently discarded last night. We will add a TSH to her labs for follow-up in 2 weeks. Signed By: Elmer Bird-, AOCNP Jose A Prince MD <<Signature on File>>
== END 2019-07-18 11:27 | disposition home or self-care (01) ==
PROVIDERS: Visit Provider Nurse Practitioner
DX: C18.7 Malignant neoplasm of sigmoid colon (principal); F41.8 Other specified anxiety disorders; E03.9 Hypothyroidism, unspecified; K57.30 Diverticulosis of large intestine without perforation or abscess without bleeding; Z79.899 Other long term (current) drug therapy; Z90.49 Acquired absence of other specified parts of digestive tract; Z87.891 Personal history of nicotine dependence
CPT/HCPCS: 99214

== ENCOUNTER 2019-07-25 05:47 | Outpatient (RCR) | payer OTHER, SELFPAY ==
[2019-07-22 14:48] LABS: Basophils % 0.7 %; Eosinophils # 0.3 10^3/uL (0.0-0.8); Eosinophils % 5.5 %; Hematocrit 38.4 % (37.0-47.0); Lymphocytes # 0.8 10^3/uL (0.8-4.8); Lymphocytes % 17.2 %; Mean Corpuscular HGB Conc 31.3 g/dL (30.0-36.0); Mean Corpuscular Hemoglobin 28.4 pg (28.0-34.0); Monocytes # 0.4 10^3/uL (0.2-0.9); Monocytes % 9.1 %; Neutrophils # 3.1 10^3/uL (1.8-7.7); Neutrophils % 67.3 %; Nucleated Red Blood Cells % 0 %; Platelet Count 222 10^3/cmm (130-400); Red Blood Count 4.22 10^6/uL (4.1-5.3); Red Cell Distribution Width 14.9 % (12.1-15.1); White Blood Count 4.5 10^3/uL (4.0-10.0)
[2019-07-22 15:36] LABS: Alanine Aminotransferase < 5 U/L (0-33); Albumin Level 4.1 g/dL (3.5-5.2); Alkaline Phosphatase 65 IU/L (35-105); Anion Gap 15.1 (5-19); Aspartate Amino Transferase 16 U/L (0-32); Blood Urea Nitrogen 18 mg/dL (8-23); Calcium 9.6 mg/dL (8.5-10.5); Carbon Dioxide 28 mmol/L (22-29); Chloride 105 mmol/L (98-107); Globulin 2.3 g/dL (1.3-4.6); Glomerular Filtration Rate 84.2 mL/min (90-130); Glucose 69 mg/dL (65-115); Osmolality Calculated 293 mOsm/kg (285-295); Potassium 4.1 mmol/L (3.5-5.1); Sodium 144 mmol/L (136-145); Total Bilirubin 0.3 mg/dL (0.15-1.2); Total Protein 6.4 g/dL (6.6-8.7)
--- NOTE | 2019-07-25 11:34 | ONC FU_ITS ---
Dr. Prince follow up note Patient: Maryana Downs Unit #: [id number]: 1955 Dicatated By: Jose A Prince M.D.Date of Visit:Jul 25, 2019 Onc Med Follow-up/Prog Note History of Present Illness: Mrs. Downs is a 64-year-old female that underwent colonoscopy examination on March 28, 2019 which showed in sigmoid colon at 55 centimeters a circumferential obstructive mass. Beyond this, the colonoscopy could not be advanced and biopsy was obtained which confirmed adenocarcinoma. Subsequently on 04/05/2019, she underwent laparoscopic sigmoid colectomy with end to end anastomosis. The final pathology report confirmed infiltrating adenocarcinoma, low-grade, focal penetration through muscularis propria into superficial serosal connective tissue. The tumor size 5 x 3 x 1 cm with clear surgical margins T3 and 0 out of 9 lymph node examined showed metastatic disease N0, positive lymphovascular invasion but no venous invasion seen. MSI/MMR status intact. Ms Downs went to [facility] for second opinion and saw Dr. John Torrez on 06/23/2019. Dr Torrez recommended adjuvant chemotherapy with 4 cycles of CAPOX but patient refused oxaliplatin but agreed for Xeloda alone. has offered her treatment with single agent (since she declines oxaliplatin) Xeloda 1250 mg/m??? day 1 through 14 and repeat every 21 days ???6-8 cycles. . She began her first cycle of Xeloda on July 11, 2019. Came for follow-up, denies any specific complaints, no nausea vomiting no fever no chills no mouth sores , no diarrhea no constipation , no skin rash, no jaundice tolerated first cycle of oral Xeloda well Medications: B-12 2 Tablet (of 500 mcg) Oral daily, Levothyroxine Sodium 1 Tablet (of 50 mcg) Oral daily, Prochlorperazine Maleate 1 Tablet (of 10 mg) Oral q 4 hours PRN, Pycnogenol 2 Tablet (of 100 mg) Capsule Oral daily, Vitamin C 1 Capsule Oral daily Allergies: No Known Allergies. Review of Systems: Constitutional - Appetite is good, weight is stable. No fever, chills or night sweats. Positive for hot flashes. Energy level is good, ENMT - No sinus congestion/drainage. No mouth sores. No sore throat or difficulty swallowing, Hematologic/Lymphatic - No abnormal bruising or bleeding, Respiratory - No shortness of breath. No cough. No pleuritic pain or hemoptysis, Cardiovascular - No angina pain. No palpitations, Gastrointestinal - No nausea or vomiting. No heartburn or acid reflux. Positive for diarrhea, no constipation. No blood in the stool or black stools, Genitourinary (F) - No dysuria or hematuria. No urinary frequency. No urgency or incontinence, Musculoskeletal - No joint or bone pain, Neurologic - No headache or dizziness. No numbness/paresthesias or other focal neurologic symptoms, Psychiatric - No anxiety or depression. No insomnia. Vital Signs: Performed on Jul 25, 2019 10:36 Height - 59.00 in Weight - 184.8 lbs (LOW) BSA - 1.78 sq.m BMI - 37.33 (HIGH) Temperature - 98.3 F (LOW) Pulse - 66 /min Respiration - 17 /min BP - 109/48 mm(hg) O2 Sat - 98 % Pain - 0 Performance Status: 0 - Fully active, able to carry on all predisease activities without restrictions. (ECOG) Physical Examination: ENMT - No oral exudates, ulcers, masses, thrush or mucositis. Oropharynx clear. Tongue normal, Respiratory - Lungs are clear to auscultation without rhonchi or wheezing, Cardiovascular - Regular rate and rhythm of heart, Abdomen - Non-tender, non-distended, Good bowel sounds. No guarding or rebound tenderness. No pulsatile masses, Extremities - no edema or rash. Lab/Imaging: Test performed on Jul 15, 2019 07:30 Sodium 140 mmol/L Potassium 4.4 mmol/L Chloride 100 mmol/L CO2 27 mmol/L Anion Gap 17.4 BUN 17 mg/dL Creatinine 0.7 mg/dL Cr Clearance (Est) 107.5600 mL/min eGFR 84.2 mL/min Glucose 90 mg/dL Calcium 9.9 mg/dL Protein, Total 7.6 g/dL Albumin 4.2 g/dL Globulin 3.4 g/dL Bilirubin, Total 0.3 mg/dL ALT (SGPT) 7 U/L AST (SGOT) 18 U/L Alkaline Phosphatase 78 IU/L WBC 4.5 10 3/uL RBC 4.72 10 6/uL HGB 12.6 g/dL HCT 41.6 % MCV 88.1 fL MCH 26.7 pg MCHC 30.3 g/dL RDW 14.4 % Platelet Count 241 10 3/cmm MPV 10.6 fL Neutrophils 2.9 10 3/uL Lymphocytes 0.9 10 3/uL Monocytes 0.4 10 3/uL Eosinophils 0.2 10 3/uL Basophils 0.0 10 3/uL Neutrophil % 64.9 % Lymphocyte % 20.4 % Monocyte % 8.9 % Eosinophil % 5.1 % Basophils % 0.7 % Impression: infiltrating adenocarcinoma involving sigmoid colon status post laparoscopic sigmoidectomy done on 04/05/2019 Final pathology report showed low-grade, focal penetration through muscularis propria into superficial serosal connective tissues, clear surgical margin, tumor size 5 x 3 x 1 cm pT3 0/9 lymph node showed metastatic disease pN0 Lymphovascular invasion seen, but no venous invasion seen Colonoscopy examination done on 03/28/2019 shows near obstructive lesion, scope could not advance beyond the lesion CT scan of abdomen pelvis done on 03/30/2019 showed extensive diverticulosis of lower descending colon and sigmoid colon no definite tumor was seen , liver was unremarkable Stage IIA (T3, N0 Mx) high risk, (being near obstructive lesion at the time of presentation, lymphovascular invasion present, 9 instead of 12 lymph node were removed and examined.) Clinically, Ms Downs is doing well, with no signs symptoms suggestive of recurrence of disease. She was referred to GI oncology at [facility] in [facility] where she saw Dr. John Torrez on 06/23/2019. Dr Torrez recommended adjuvant chemotherapy with CAPOX ???4 cycles but patient declined oxaliplatin but agreed for Xeloda alone. Dr Prince has recommended Xeloda 1250 mg/m??? day 1 through 14 and repeat every 21 days ???6-8 cycles. She opted to decline the oxaliplatin. Mrs. Downs is doing single agent Xeloda and started this on July 11, 2019. She is tolerating it well thus far. Plan: Discussed with patient regarding her labs white blood count 4.5 hemoglobin 12 crit 38.4 platelets 222,000 CMP within normal limits Clinically, patient doing well, tolerating adjuvant chemotherapy with single agent Xeloda 2 weeks on 1 week off, well patient completed first cycle of 2 weeks Xeloda on 07/23/2019. With a no obvious side effects. Patient is off this week and start next cycle #2 on 07/31/2023 2 weeks and we will see her back in 3 weeks with CBC CMP. Signed By: Jose A Prince M.D. <<Signature on File>>
== END 2019-08-09 23:59 | disposition home or self-care (01) ==
LOC: ONCMED 05:47
PROVIDERS: Nurse Practitioner; Visit Provider Internal Medicine Hematology & Oncology
DX: C18.7 Malignant neoplasm of sigmoid colon (principal); K57.90 Diverticulosis of intestine, part unspecified, without perforation or abscess without bleeding; Z79.899 Other long term (current) drug therapy; Z90.49 Acquired absence of other specified parts of digestive tract
CPT/HCPCS: 80053; 85025; 99214

== ENCOUNTER 2019-09-08 06:47 | Outpatient (RCR) | payer OTHER, SELFPAY ==
[2019-08-11 14:50] LABS: Basophils % 0.4 %; Eosinophils # 0.3 10^3/uL (0.0-0.8); Eosinophils % 5.6 %; Hematocrit 40.9 % (37.0-47.0); Hemoglobin 12.8 g/dL (11.5-15.3); Lymphocytes % 20.7 %; Mean Corpuscular HGB Conc 31.3 g/dL (30.0-36.0); Mean Corpuscular Hemoglobin 28.9 pg (28.0-34.0); Mean Corpuscular Volume 92.3 fL (81-99); Monocytes # 0.4 10^3/uL (0.2-0.9); Neutrophils % 65.1 %; Nucleated Red Blood Cells % 0 %; Platelet Count 227 10^3/cmm (130-400); Red Blood Count 4.43 10^6/uL (4.1-5.3); Red Cell Distribution Width 17.4 % (12.1-15.1); White Blood Count 4.6 10^3/uL (4.0-10.0)
[2019-08-11 15:03] LABS: Alanine Aminotransferase 11 U/L (0-33); Albumin Level 4.6 g/dL (3.5-5.2); Alkaline Phosphatase 76 IU/L (35-105); Anion Gap 17.1 (5-19); Aspartate Amino Transferase 24 U/L (0-32); Blood Urea Nitrogen 13 mg/dL (8-23); Calcium 9.8 mg/dL (8.5-10.5); Carbon Dioxide 26 mmol/L (22-29); Chloride 99 mmol/L (98-107); Globulin 2.1 g/dL (1.3-4.6); Glomerular Filtration Rate 84.2 mL/min (90-130); Glucose 95 mg/dL (65-115); Osmolality Calculated 282 mOsm/kg (285-295); Potassium 4.1 mmol/L (3.5-5.1); Sodium 138 mmol/L (136-145); Total Bilirubin 0.4 mg/dL (0.15-1.2); Total Protein 6.7 g/dL (6.6-8.7)
--- NOTE | 2019-08-12 11:07 | ONC FU_ITS ---
Dr. Prince follow up note Patient: Maryana Downs Unit #: [id number]: 1955 Dicatated By: Jose A Prince M.D.Date of Visit:Aug 12, 2019 Onc Med Follow-up/Prog Note History of Present Illness: Mrs. Downs is a 64-year-old female that underwent colonoscopy examination on March 28, 2019 which showed in sigmoid colon at 55 centimeters a circumferential obstructive mass. Beyond this, the colonoscopy could not be advanced and biopsy was obtained which confirmed adenocarcinoma. Subsequently on 04/05/2019, she underwent laparoscopic sigmoid colectomy with end to end anastomosis. The final pathology report confirmed infiltrating adenocarcinoma, low-grade, focal penetration through muscularis propria into superficial serosal connective tissue. The tumor size 5 x 3 x 1 cm with clear surgical margins T3 and 0 out of 9 lymph node examined showed metastatic disease N0, positive lymphovascular invasion but no venous invasion seen. MSI/MMR status intact. Ms Downs went to [facility] for second opinion and saw Dr. John Torrez on 06/23/2019. Dr Torrez recommended adjuvant chemotherapy with 4 cycles of CAPOX but patient refused oxaliplatin but agreed for Xeloda alone. has offered her treatment with single agent (since she declines oxaliplatin) Xeloda 1250 mg/m??? day 1 through 14 and repeat every 21 days ???6-8 cycles. . She began her first cycle of Xeloda on July 11, 2019. Telemedicine evaluation note, patient denies any specific complaints today but recently developed diarrhea and she was advised to hold Xeloda, with that now diarrhea has resolved. As per patient she had vegetable soup and tomato soup, subsequently she felt like going to Restroom, No abdominal pain, no mucus in stool, no mouth sores, no skin rash, no [id number] rash, no jaundice. Medications: B-12 2 Tablet (of 500 mcg) Oral daily, Levothyroxine Sodium 1 Tablet (of 50 mcg) Oral daily, Prochlorperazine Maleate 1 Tablet (of 10 mg) Oral q 4 hours PRN, Pycnogenol 2 Tablet (of 100 mg) Capsule Oral daily, Vitamin C 1 Capsule Oral daily Allergies: No Known Allergies. Review of Systems: Constitutional - Appetite is good, weight is stable. No fever, chills or night sweats. Positive for hot flashes. Energy level is good, ENMT - Positive for seasonal sinus congestion/drainage. No mouth sores. No sore throat or difficulty swallowing, Hematologic/Lymphatic - No abnormal bruising or bleeding, Respiratory - No shortness of breath. No cough. No pleuritic pain or hemoptysis, Cardiovascular - No angina pain. No palpitations, Gastrointestinal - No nausea or vomiting. Occasional heartburn, no acid reflux. Positive for diarrhea, no constipation. No blood in the stool or black stools, Genitourinary (F) - No dysuria or hematuria. No urinary frequency. No urgency or incontinence, Musculoskeletal - No joint or bone pain, Neurologic - No headache or dizziness. No numbness/paresthesias or other focal neurologic symptoms, Psychiatric - No anxiety or depression. No insomnia. Vital Signs: Performed on Aug 12, 2019 10:44 Height - 59.00 in Pulse - 74 /min BP - 105/70 mm(hg) O2 Sat - 98 % Pain - 0 Performance Status: 0 - Fully active, able to carry on all predisease activities without restrictions. (ECOG) Physical Examination: ENMT - evaluated via telemedicine, patient denies any mouth sores, denies any thrush, denies any sore throat, Respiratory - denies any shortness of breath or wheezing, Cardiovascular - denies any palpitation, Abdomen - denies any abdominal pain, other mass or tenderness or fullness, Extremities - denies any skin rash, denies any edema or focal weakness or peripheral numbness. Lab/Imaging: Test performed on Aug 11, 2019 13:35 Sodium 138 mmol/L Potassium 4.1 mmol/L Chloride 99 mmol/L CO2 26 mmol/L Anion Gap 17.1 BUN 13 mg/dL Creatinine 0.7 mg/dL Cr Clearance (Est) 107.4400 mL/min eGFR 84.2 mL/min Glucose 95 mg/dL Calcium 9.8 mg/dL Protein, Total 6.7 g/dL Albumin 4.6 g/dL Globulin 2.1 g/dL Bilirubin, Total 0.4 mg/dL ALT (SGPT) 11 U/L AST (SGOT) 24 U/L Alkaline Phosphatase 76 IU/L WBC 4.6 10 3/uL RBC 4.43 10 6/uL HGB 12.8 g/dL HCT 40.9 % MCV 92.3 fL MCH 28.9 pg MCHC 31.3 g/dL RDW 17.4 % Platelet Count 227 10 3/cmm MPV 10.0 fL Neutrophils 3.0 10 3/uL Lymphocytes 1.0 10 3/uL Monocytes 0.4 10 3/uL Eosinophils 0.3 10 3/uL Basophils 0.0 10 3/uL Neutrophil % 65.1 % Lymphocyte % 20.7 % Monocyte % 8.0 % Eosinophil % 5.6 % Basophils % 0.4 % Impression: infiltrating adenocarcinoma involving sigmoid colon status post laparoscopic sigmoidectomy done on 04/05/2019 Final pathology report showed low-grade, focal penetration through muscularis propria into superficial serosal connective tissues, clear surgical margin, tumor size 5 x 3 x 1 cm pT3 0/9 lymph node showed metastatic disease pN0 Lymphovascular invasion seen, but no venous invasion seen Colonoscopy examination done on 03/28/2019 shows near obstructive lesion, scope could not advance beyond the lesion CT scan of abdomen pelvis done on 03/30/2019 showed extensive diverticulosis of lower descending colon and sigmoid colon no definite tumor was seen , liver was unremarkable Stage IIA (T3, N0 Mx) high risk, (being near obstructive lesion at the time of presentation, lymphovascular invasion present, 9 instead of 12 lymph node were removed and examined.) Clinically, Ms Downs is doing well, with no signs symptoms suggestive of recurrence of disease. She was referred to GI oncology at [facility] in [facility] where she saw Dr. John Torrez on 06/23/2019. Dr Torrez recommended adjuvant chemotherapy with CAPOX ???4 cycles but patient declined oxaliplatin but agreed for Xeloda alone. Dr Prince has recommended Xeloda 1250 mg/m??? day 1 through 14 and repeat every 21 days ???6-8 cycles. She opted to decline the oxaliplatin. Mrs. Downs is doing single agent Xeloda and started this on July 11, 2019. She is tolerating it well thus far. Plan: Discussed with patient via telemedicine about her labs white blood count 4.6 and globin 12.8 crit 40.9 platelets 227,000 CMP within normal limits Clinically, patient is doing well, no new symptoms, diarrhea has resolved. And lab workup is within normal range. Patient was advised to complete the 14 days course with Xeloda as patient missed 2 days of adjuvant therapy. In that case she will complete her 14 days course of Xeloda on Thursday. Then she has week off before she start next cycle of 14 days Xeloda. We'll repeat her CBC CMP in 3 weeks and then will either see her in the office or evaluate her via telemedicine depending on coronal virus situation. Patient was reminded in case, another episode of diarrhea with Xeloda, she needed to call us and then we will consider dose reduction to minimize the toxicity. Signed By: Jose A Prince M.D. <<Signature on File>>
[2019-08-29 15:38] LABS: Basophils # 0.1 10^3/uL (0.0-0.1); Basophils % 0.6 %; Eosinophils # 0.1 10^3/uL (0.0-0.8); Eosinophils % 0.8 %; Hematocrit 41.7 % (37.0-47.0); Hemoglobin 12.7 g/dL (11.5-15.3); Lymphocytes # 1.2 10^3/uL (0.8-4.8); Mean Corpuscular HGB Conc 30.5 g/dL (30.0-36.0); Mean Corpuscular Hemoglobin 29.5 pg (28.0-34.0); Mean Corpuscular Volume 96.8 fL (81-99); Mean Platelet Volume 9.4 fL (7.4-10.4); Monocytes # 0.6 10^3/uL (0.2-0.9); Monocytes % 6.9 %; Neutrophils # 6.4 10^3/uL (1.8-7.7); Neutrophils % 77.1 %; Nucleated Red Blood Cells % 0 %; Platelet Count 296 10^3/cmm (130-400); Red Blood Count 4.31 10^6/uL (4.1-5.3); Red Cell Distribution Width 19.5 % (12.1-15.1); White Blood Count 8.4 10^3/uL (4.0-10.0)
[2019-08-29 16:47] LABS: Erythrocyte Sedimentation Rate 6 mm/hr (0-15)
[2019-08-29 16:53] LABS: Alanine Aminotransferase 13 U/L (0-33); Albumin Level 4.6 g/dL (3.5-5.2); Alkaline Phosphatase 84 IU/L (35-105); Anion Gap 18.7 (5-19); Aspartate Amino Transferase 14 U/L (0-32); Blood Urea Nitrogen 22 mg/dL (8-23); Calcium 9.5 mg/dL (8.5-10.5); Carbon Dioxide 26 mmol/L (22-29); Chloride 103 mmol/L (98-107); Globulin 2.7 g/dL (1.3-4.6); Glomerular Filtration Rate 84.2 mL/min (90-130); Glucose 85 mg/dL (65-115); Osmolality Calculated 294 mOsm/kg (285-295); Potassium 3.7 mmol/L (3.5-5.1); Sodium 144 mmol/L (136-145); Total Bilirubin 0.4 mg/dL (0.15-1.2); Total Protein 7.3 g/dL (6.6-8.7)
[2019-08-29 21:47] LABS: C Reactive Protein 0.8 mg/L (0.0-4.9); Thyroid Stimulating Hormone 4.39 uIU/mL (0.27-4.20)
--- NOTE | 2019-08-30 15:03 | ONC FU_ITS ---
Dr. Prince follow up note Patient: Maryana Downs Unit #: [id number]: 1955 Dicatated By: Jose A Prince M.D.Date of Visit:Aug 30, 2019 Telehealth Progress Note The patient has been informed that the visit may not be secure and acknowledged the information. I have explained the option of participating in a telephone or video visit during the COVID-19 public health emergency to the patient. After being given an opportunity to ask questions about and discuss this type of visit, the patient verbally consented to proceeding with the telephone/video visit. the patient understands that this service replaces an office visit and they may be billed and /or responsible for any applicable copayments History of Present Illness: Mrs. Downs is a 64-year-old female that underwent colonoscopy examination on March 28, 2019 which showed in sigmoid colon at 55 centimeters a circumferential obstructive mass. Beyond this, the colonoscopy could not be advanced and biopsy was obtained which confirmed adenocarcinoma. Subsequently on 04/05/2019, she underwent laparoscopic sigmoid colectomy with end to end anastomosis. The final pathology report confirmed infiltrating adenocarcinoma, low-grade, focal penetration through muscularis propria into superficial serosal connective tissue. The tumor size 5 x 3 x 1 cm with clear surgical margins T3 and 0 out of 9 lymph node examined showed metastatic disease N0, positive lymphovascular invasion but no venous invasion seen. MSI/MMR status intact. Ms Downs went to [facility] for second opinion and saw Dr. John Torrez on 06/23/2019. Dr Torrez recommended adjuvant chemotherapy with 4 cycles of CAPOX but patient refused oxaliplatin but agreed for Xeloda alone. has offered her treatment with single agent (since she declines oxaliplatin) Xeloda 1250 mg/m??? day 1 through 14 and repeat every 21 days ???6-8 cycles. . She began her first cycle of Xeloda on July 11, 2019. Evaluated via telephone, patient denies any specific complaints, denies any fever chills, denies any nausea or vomiting denies any diarrhea constipation denies any jaundice denies any skin rash or rash over hand and feet. Denies any mouth sores. Patient is tolerating third cycle of oral Xeloda well and will complete third cycle on 09/04/2019. Medications: B-12 2 Tablet (of 500 mcg) Oral daily, Levothyroxine Sodium 1 Tablet (of 50 mcg) Oral daily, Prochlorperazine Maleate 1 Tablet (of 10 mg) Oral q 4 hours PRN, Pycnogenol 2 Tablet (of 100 mg) Capsule Oral daily, Vitamin C 1 Capsule Oral daily Allergies: No Known Allergies. Review of Systems: Review of Systems is not available for this patient. Vital Signs: Vitals are not available for this patient. Performance Status: 0 - Fully active, able to carry on all predisease activities without restrictions. (ECOG) Physical Examination: ENMT - denies any mouth sore or thrush or jaundice, Respiratory - denies any shortness of breath or wheezing, Cardiovascular - denies in tachycardia or palpitation, Abdomen - denies any abdominal pain or fullness, Extremities - patient denies any edema. Lab/Imaging: Test performed on Aug 11, 2019 13:35 Sodium 138 mmol/L Potassium 4.1 mmol/L Chloride 99 mmol/L CO2 26 mmol/L Anion Gap 17.1 BUN 13 mg/dL Creatinine 0.7 mg/dL Cr Clearance (Est) 107.4400 mL/min eGFR 84.2 mL/min Glucose 95 mg/dL Calcium 9.8 mg/dL Protein, Total 6.7 g/dL Albumin 4.6 g/dL Globulin 2.1 g/dL Bilirubin, Total 0.4 mg/dL ALT (SGPT) 11 U/L AST (SGOT) 24 U/L Alkaline Phosphatase 76 IU/L WBC 4.6 10 3/uL RBC 4.43 10 6/uL HGB 12.8 g/dL HCT 40.9 % MCV 92.3 fL MCH 28.9 pg MCHC 31.3 g/dL RDW 17.4 % Platelet Count 227 10 3/cmm MPV 10.0 fL Neutrophils 3.0 10 3/uL Lymphocytes 1.0 10 3/uL Monocytes 0.4 10 3/uL Eosinophils 0.3 10 3/uL Basophils 0.0 10 3/uL Neutrophil % 65.1 % Lymphocyte % 20.7 % Monocyte % 8.0 % Eosinophil % 5.6 % Basophils % 0.4 % Impression: infiltrating adenocarcinoma involving sigmoid colon status post laparoscopic sigmoidectomy done on 04/05/2019 Final pathology report showed low-grade, focal penetration through muscularis propria into superficial serosal connective tissues, clear surgical margin, tumor size 5 x 3 x 1 cm pT3 0/9 lymph node showed metastatic disease pN0 Lymphovascular invasion seen, but no venous invasion seen Colonoscopy examination done on 03/28/2019 shows near obstructive lesion, scope could not advance beyond the lesion CT scan of abdomen pelvis done on 03/30/2019 showed extensive diverticulosis of lower descending colon and sigmoid colon no definite tumor was seen , liver was unremarkable Stage IIA (T3, N0 Mx) high risk, (being near obstructive lesion at the time of presentation, lymphovascular invasion present, 9 instead of 12 lymph node were removed and examined.) Clinically, Ms Downs is doing well, with no signs symptoms suggestive of recurrence of disease. She was referred to GI oncology at [facility] in [facility] where she saw Dr. John Torrez on 06/23/2019. Dr Torrez recommended adjuvant chemotherapy with CAPOX ???4 cycles but patient declined oxaliplatin but agreed for Xeloda alone. Dr Prince has recommended Xeloda 1250 mg/m??? day 1 through 14 and repeat every 21 days ???6-8 cycles. She opted to decline the oxaliplatin. Mrs. Downs is doing single agent Xeloda and started this on July 11, 2019. She is tolerating it well thus far. Plan: Discussed with patient via telephone regarding her labs white blood count 8.4 hemoglobin 12.7 crit 41.7 platelets 296,000 CMP within normal limits Clinically, patient is doing well, tolerating adjuvant therapy with oral Xeloda well but with expected side effects. Patient is on third cycle of oral Xeloda and she will complete this one on 09/04/2019. And then she has week off. And her restart cycle #4 with Xeloda day 1 through 14 on 09/12/2019 then 1 week off. We will repeat her CBC CMP on 09/26/2019. Patient was advised in case she has any new signs symptom she needed to call us immediately otherwise continue with treatment as planned Signed By: Jose A Prince M.D. <<Signature on File>>
[2019-08-30 15:04] LABS: Cyclic Citrullinated Peptide <16 UNITS
[2019-08-30 15:31] LABS: Anti-Nuclear Antibody Pattern Nuclear, Centromere; Anti-Nuclear Antibody Screen POSITIVE (NEGATIVE); Anti-Nuclear Antibody Titer > OR = 1:1280 titer
--- NOTE | 2019-09-08 16:41 | ONC FU_ITS ---
Dr. Prince follow up note Patient: Maryana Downs Unit #: [id number]: 1955 Dicatated By: Jose A Prince M.D.Date of Visit:Sep 08, 2019 Telehealth Progress Note The patient has been informed that the visit may not be secure and acknowledged the information. I have explained the option of participating in a telephone or video visit during the COVID-19 public health emergency to the patient. After being given an opportunity to ask questions about and discuss this type of visit, the patient verbally consented to proceeding with the telephone/video visit. the patient understands that this service replaces an office visit and they may be billed and /or responsible for any applicable copayments History of Present Illness: Mrs. Downs is a 64-year-old female that underwent colonoscopy examination on March 28, 2019 which showed in sigmoid colon at 55 centimeters a circumferential obstructive mass. Beyond this, the colonoscopy could not be advanced and biopsy was obtained which confirmed adenocarcinoma. Subsequently on 04/05/2019, she underwent laparoscopic sigmoid colectomy with end to end anastomosis. The final pathology report confirmed infiltrating adenocarcinoma, low-grade, focal penetration through muscularis propria into superficial serosal connective tissue. The tumor size 5 x 3 x 1 cm with clear surgical margins T3 and 0 out of 9 lymph node examined showed metastatic disease N0, positive lymphovascular invasion but no venous invasion seen. MSI/MMR status intact. Ms Downs went to [facility] for second opinion and saw Dr. John Torrez on 06/23/2019. Dr Torrez recommended adjuvant chemotherapy with 4 cycles of CAPOX but patient refused oxaliplatin but agreed for Xeloda alone. has offered her treatment with single agent (since she declines oxaliplatin) Xeloda 1250 mg/m??? day 1 through 14 and repeat every 21 days ???6-8 cycles. . She began her first cycle of Xeloda on July 11, 2019. Evaluated via telephone,Patient was complaining of pain in her feet and redness involving bilateral palms but no blisters or rash, no mouth sores, no jaundice, no diarrhea or constipation. As per patient, this was a first-time it happened while she was on cycle #3 of Xeloda and then she discontinued Xeloda and within 2- 3 days, although symptoms resolved completely, she is feeling back to normal. Patient has decided to discontinue adjuvant chemotherapy with oral Xeloda Medications: B-12 2 Tablet (of 500 mcg) Oral daily, Levothyroxine Sodium 1 Tablet (of 50 mcg) Oral daily, Prochlorperazine Maleate 1 Tablet (of 10 mg) Oral q 4 hours PRN, Pycnogenol 2 Tablet (of 100 mg) Capsule Oral daily, Vitamin C 1 Capsule Oral daily Allergies: No Known Allergies. Review of Systems: Review of Systems is not available for this patient. Vital Signs: Vitals are not available for this patient. Performance Status: 0 - Fully active, able to carry on all predisease activities without restrictions. (ECOG) Physical Examination: ENMT - no mouth sores,, Respiratory - patient denies any shortness of breath or wheezing, Cardiovascular - denies any tachycardia or palpitation, Abdomen - denies any abdominal pain or distention, Extremities - denies any edema or skin rash or involving [id number]. Lab/Imaging: Test performed on Aug 29, 2019 09:50 Sodium 144 mmol/L Potassium 3.7 mmol/L Chloride 103 mmol/L CO2 26 mmol/L Anion Gap 18.7 BUN 22 mg/dL Creatinine 0.7 mg/dL Cr Clearance (Est) 107.4400 mL/min eGFR 84.2 mL/min Glucose 85 mg/dL Calcium 9.5 mg/dL Protein, Total 7.3 g/dL Albumin 4.6 g/dL Globulin 2.7 g/dL Bilirubin, Total 0.4 mg/dL ALT (SGPT) 13 U/L AST (SGOT) 14 U/L Alkaline Phosphatase 84 IU/L WBC 8.4 10 3/uL RBC 4.31 10 6/uL HGB 12.7 g/dL HCT 41.7 % MCV 96.8 fL MCH 29.5 pg MCHC 30.5 g/dL RDW 19.5 % Platelet Count 296 10 3/cmm MPV 9.4 fL Neutrophils 6.4 10 3/uL Lymphocytes 1.2 10 3/uL Monocytes 0.6 10 3/uL Eosinophils 0.1 10 3/uL Basophils 0.1 10 3/uL Neutrophil % 77.1 % Lymphocyte % 14.0 % Monocyte % 6.9 % Eosinophil % 0.8 % Basophils % 0.6 % Impression: infiltrating adenocarcinoma involving sigmoid colon status post laparoscopic sigmoidectomy done on 04/05/2019 Final pathology report showed low-grade, focal penetration through muscularis propria into superficial serosal connective tissues, clear surgical margin, tumor size 5 x 3 x 1 cm pT3 0/9 lymph node showed metastatic disease pN0 Lymphovascular invasion seen, but no venous invasion seen Colonoscopy examination done on 03/28/2019 shows near obstructive lesion, scope could not advance beyond the lesion CT scan of abdomen pelvis done on 03/30/2019 showed extensive diverticulosis of lower descending colon and sigmoid colon no definite tumor was seen , liver was unremarkable Stage IIA (T3, N0 Mx) high risk, (being near obstructive lesion at the time of presentation, lymphovascular invasion present, 9 instead of 12 lymph node were removed and examined.) Clinically, Ms Downs is doing well, with no signs symptoms suggestive of recurrence of disease. She was referred to GI oncology at [facility] in [facility] where she saw Dr. John Torrez on 06/23/2019. Dr Torrez recommended adjuvant chemotherapy with CAPOX ???4 cycles but patient declined oxaliplatin but agreed for Xeloda alone. has recommended Xeloda 1250 mg/m??? day 1 through 14 and repeat every 21 days ???6-8 cycles. She opted to decline the oxaliplatin. Mrs. Downs is doing single agent Xeloda and started this on July 11, 2019. On 09/01/2019 Patient decided to discontinue adjuvant chemotherapy with oral Xeloda without completing third cycle due to pain in her feet and redness and bilateral palms, her decision was against medical advise. Patient opted for observation alone Plan: Discussed with patient via telemedicine , regarding her concerns about possible toxicity due to oral Xeloda especially pain in her bilateral feet especially in plantar area but no skin rash or blisters, no mouth sores, no jaundice, no diarrhea. As per patient once she discontinued oral Xeloda her symptoms resolved within 2-3 days. Now patient has decided to discontinue adjuvant chemotherapy AGAINST MEDICAL ADVICE. Patient was advised that if she is concerned about chemotherapy related side effects, chemotherapy dose can be adjusted/reduced but patient said, she got take care of her and with side effects it may not be possible and also she believes God has cured her. And she understand the risk versus benefits and wall with adjuvant chemotherapy and she would rather prefer observation alone.So at patient request, we will follow her in 3 months with CBC CMP. Signed By: Jose A Prince M.D. <<Signature on File>>
== END 2019-09-08 23:59 | disposition home or self-care (01) ==
LOC: ONCMED 06:47
PROVIDERS: Nurse Practitioner Family; Visit Provider Internal Medicine Hematology & Oncology
DX: C18.7 Malignant neoplasm of sigmoid colon (principal); K57.30 Diverticulosis of large intestine without perforation or abscess without bleeding; E03.9 Hypothyroidism, unspecified; F41.8 Other specified anxiety disorders; M06.9 Rheumatoid arthritis, unspecified; Z90.49 Acquired absence of other specified parts of digestive tract; Z79.899 Other long term (current) drug therapy
CPT/HCPCS: 36415; 80053; 84443; 85025; 85651; 86140; 86431

== ENCOUNTER 2019-09-23 07:08 | Outpatient (RCR) | payer OTHER, SELFPAY ==
--- NOTE | 2019-09-24 17:33 | ONC FU_ITS ---
[facility] Patient Note Patient: Maryana Downs Unit #: [id number]: 1955 Dictated By: Elmer BirdDate of Visit: September 23, 2019 Onc MED Follow-Up/Prog Note Chief Complaint: Colon cancer History of Present Illness: Mrs. Downs is a 64-year-old female that underwent colonoscopy examination on March 28, 2019 which showed in sigmoid colon at 55 centimeters a circumferential obstructive mass. Beyond this, the colonoscopy could not be advanced and biopsy was obtained which confirmed adenocarcinoma. Subsequently on 04/05/2019, she underwent laparoscopic sigmoid colectomy with end to end anastomosis. The final pathology report confirmed infiltrating adenocarcinoma, low-grade, focal penetration through muscularis propria into superficial serosal connective tissue. The tumor size 5 x 3 x 1 cm with clear surgical margins T3 and 0 out of 9 lymph node examined showed metastatic disease N0, positive lymphovascular invasion but no venous invasion seen. MSI/MMR status intact. Ms Downs went to [facility] for second opinion and saw Dr. John Torrez on 06/23/2019. Dr Torrez recommended adjuvant chemotherapy with 4 cycles of CAPOX but patient refused oxaliplatin but agreed for Xeloda alone. Dr Prince has offered her treatment with single agent (since she declines oxaliplatin) Xeloda 1250 mg/m??? day 1 through 14 and repeat every 21 days ???6-8 cycles. Mrs. Downs began her first cycle of Xeloda on July 11, 2019 and states that her last dose of Xeloda was on September 03, 2019. She was only able to complete 3 cycles of the Xeloda. She had developed hand-foot syndrome but not until after completion of the third cycle of the Xeloda. She states she woke up one morning and her feet were just tender like she was walking on shards of glass. She had had a telehealth visit with Dr. Prince on September 08, 2019. On that visit she reported that she was having difficulty with her feet being very tender and had difficulty walking due to the pain in her feet. She has had some pain in her her hands at that time but the feet were more so the problem. She denied any blisters or skin changes at that time. She states that did not develop however her hands have began to feel somewhat and have been tender on the fingertips. She states that her feet have dramatically improved however her hands continue to worsen a little as they have now begin to peel somewhat . She has some tender areas on her fingers and one area that has slight fissure noted. She has noticed some changes in the cuticle of her fingers consisting of discoloration. They are on various fingers. The nailbeds are white but are not loose at this time. She was advised that this is due to the Xeloda. She is aware that it may be there for an extended amount of time. She has had no further difficulty walking and denies any neuropathy in her feet. She did not resume the Xeloda with her fourth cycle. She states that she is done with the Xeloda after this significant pain in her feet and now the peeling in her hands. She is aware of the recommendation for 6-8 cycles but states that she feels there is no way she can tolerate that much of the chemotherapy. Dr. Prince was aware of this and his note September 08, 2019 he notes that she stopped the Xeloda AGAINST MEDICAL ADVICE. Mrs. Downs reports that she is doing well overall with the exception of her hands. She denies any fever or chills. She has had no mouth sores, sore throat or difficulty swallowing. She reports her energy is good her appetite is good. She states overall she is lost 20 pounds and is been able to keep that off. She states her appetite is good and she is active around the house. She does have a garden which she attends. She does have stress at home related to her who has COPD. She remains very upbeat and positive. She denies any bowel changes. She states occasionally she will have sudden incontinence of a small amount of stool that is formed. She states this may happen once or twice during the episode and may not happen again for some time but she has noticed this has been since her surgery. It is no worse. She has had no hematochezia. She denies any nausea or vomiting. Her ECOG is 0. Past Medical History: Anxiety Depression Hypothyroidism Past Surgical History: Hysterectomy/bilateral salpingectomy-oophorectomy Sigmoid colectomy Tonsillectomy Tubal ligation Colonoscopy in 2019 Allergies: No Known Allergies. Medications: B-12 2 Tablet (of 500 mcg) Oral daily Levothyroxine Sodium 1 Tablet (of 50 mcg) Oral daily Pycnogenol 2 Tablet (of 100 mg) Capsule Oral daily Vitamin C 1 Capsule Oral daily Family History: Ms. Downs's mother at age 74: heart disease. Ms. Downs's father at age 76: type II diabetes. Social History: Ms. Downs is and she is retired. Ms. Downs quit smoking 9 years ago but had smoked for 34 years. She has no history of drinking. Ms. Downs reports the following support systems: lives with spouse, significant other, family, or friends, lives in own house, supportive family/friends willing to assist with needs, and adequate transportation available for expected visits. Her diet consists of regular meals. She indicates her activity level as: regular exercise. Review Of Symptoms: Constitutional Denies fevers, chills, night sweats, excessive fatigue or weight loss. Allergic/Immunologic No reactions. Eyes Denies significant visual changes. No diplopia. No amaurosis. ENMT Denies changes in hearing, sore throat, mouth sores, difficulty or changes in swallowing ability, and/or sinus drainage. Hematologic/Lymphatic Denies easy bruising or bleeding. The patient denies any tender or palpable lymph nodes. Respiratory Denies dyspnea on exertion, chest pain, cough or hemoptysis. Denies orthopnea. Cardiovascular Denies anginal chest pain, palpitations or orthopnea. Gastrointestinal Denies nausea, vomiting, diarrhea, GI bleeding, or constipation. Denies change in bowel habits and/or stool color, no heartburn or early satiety. Genitourinary (F) No hematuria, hesitancy, incontinence, vaginal bleeding, discharge or other problems with urination. Musculoskeletal Denies joint pain, swelling or redness. No decreased range of motion. Integumentary Hands tender and skin peeling as above. no other skin rashes or changes. Neurologic Denies headache, blurred vision, and no areas of focal weakness or numbness. Normal gait. No sensory problems. Psychiatric Denies insomnia, depression, katelyn or mood swings. Vital Signs: Performed on September 23, 2019 10:06 Height - 59.00 in Weight - 183.6 lbs (LOW) BSA - 1.78 sq.m BMI - 37.08 (HIGH) Temperature - 98.0 F (LOW) Pulse - 68 /min Respiration - 18 /min BP - 103/60 mm(hg) O2 Sat - 97 % Pain - 0,0 - Fully active, able to carry on all predisease activities without restrictions. (ECOG) Physical Examination: Constitutional Alert, oriented, no acute distress. Skin pink, warm and dry. Head Normocephalic; atraumatic. Eyes Conjunctivae and sclerae are clear and without icterus. Pupils are reactive and equal. Neck Supple without masses or thyromegaly. No jugular venous distension. Extremities No visible deformities, no cyanosis, clubbing or edema. Musculoskeletal No tenderness or swelling, normal range of motion without obvious weakness. Integumentary Palms of her hands are moderately bright pink, no actual lesions at present. I see only minor fistulas (cracking of her skin) on her right thumb and fore finger but it is healing well. There is grade 2 palmar plantar erythrodysesthesia without blisters present. She has scattered, mild desquamation on her hands. Her feet were not assessed at her request. Neurologic No sensory or motor deficits, normal cerebellar function, normal gait. Psychiatric Alert and oriented times three. Coherent speech. Verbalizes understanding of our discussions today. Laboratory:Test performed on Aug 29, 2019 09:50 Sodium 144 mmol/L Potassium 3.7 mmol/L Chloride 103 mmol/L CO2 26 mmol/L Anion Gap 18.7 BUN 22 mg/dL Creatinine 0.7 mg/dL Cr Clearance (Est) 107.4400 mL/min eGFR 84.2 mL/min Glucose 85 mg/dL Calcium 9.5 mg/dL Protein, Total 7.3 g/dL Albumin 4.6 g/dL Globulin 2.7 g/dL Bilirubin, Total 0.4 mg/dL ALT (SGPT) 13 U/L AST (SGOT) 14 U/L Alkaline Phosphatase 84 IU/L WBC 8.4 10 3/uL RBC 4.31 10 6/uL HGB 12.7 g/dL HCT 41.7 % MCV 96.8 fL MCH 29.5 pg MCHC 30.5 g/dL RDW 19.5 % Platelet Count 296 10 3/cmm MPV 9.4 fL Neutrophils 6.4 10 3/uL Lymphocytes 1.2 10 3/uL Monocytes 0.6 10 3/uL Eosinophils 0.1 10 3/uL Basophils 0.1 10 3/uL Neutrophil % 77.1 % Lymphocyte % 14.0 % Monocyte % 6.9 % Eosinophil % 0.8 % Basophils % 0.6 % Impression: infiltrating adenocarcinoma involving sigmoid colon status post laparoscopic sigmoidectomy done on 04/05/2019 Final pathology report showed low-grade, focal penetration through muscularis propria into superficial serosal connective tissues, clear surgical margin, tumor size 5 x 3 x 1 cm pT3 0/9 lymph node showed metastatic disease pN0 Lymphovascular invasion seen, but no venous invasion seen Colonoscopy examination done on 03/28/2019 shows near obstructive lesion, scope could not advance beyond the lesion CT scan of abdomen pelvis done on 03/30/2019 showed extensive diverticulosis of lower descending colon and sigmoid colon no definite tumor was seen , liver was unremarkable Stage IIA (T3, N0 Mx) high risk, (being near obstructive lesion at the time of presentation, lymphovascular invasion present, 9 instead of 12 lymph node were removed and examined.) Clinically, Ms Downs is doing well, with no signs symptoms suggestive of recurrence of disease. She was referred to GI oncology at [facility] in [facility] where she saw Dr. John Torrez on 06/23/2019. Dr Torrez recommended adjuvant chemotherapy with CAPOX ???4 cycles but patient declined oxaliplatin but agreed for Xeloda alone. has recommended Xeloda 1250 mg/m??? day 1 through 14 and repeat every 21 days ???6-8 cycles. She opted to decline the oxaliplatin. Mrs. Downs is doing single agent Xeloda and started this on July 11, 2019. On 09/01/2019 Patient decided to discontinue adjuvant chemotherapy with oral Xeloda without completing third cycle due to pain in her feet and redness and bilateral palms, her decision was against medical advise. Patient opted for observation alone Plan: 1. Continue observation in regards to the colon cancer. She has declined any further treatments at this time. She states she is well aware of the recommendation but believes God has healed her and she does not want to put up the side effects of the Xeloda. 2. Grade 2 plantar muhammad erythrodysesthesia (without blisters): We discussed utilization of topical urea; ie, bag balm/ utter cream and frequent applications of lotion to her hands. I have asked her to avoid a lot of hot water and harsh soap. She states she is using a moisturizing soap and this has helped. She has been applying triple antibiotic to the areas that seem to be trying to split . She states this has helped them tremendously. We discussed using many emollients. She was advised that she could try vitamin E oil to see if that would help as well. We discussed at length the possibility of adding steroids however I am not convinced that they will do a whole lot but would be willing to try if the enhanced moisturization is not improving over the next 1 to 2 weeks. She states she will contact me if her hands are not improving within the next 7-10 days. We discussed that this is a common side effect of the capecitabine and generally it takes several weeks for this to heal up to 6 to 8 weeks minimally at times. She verbalized understanding. 3. She continues to utilize lorazepam as needed for anxiety related to the care of her with COPD. She generally takes no more than 3 daily and that is rare. She states she thinks she has a refill at this time. She will call us if she does not. 4. We will plan to see her back as scheduled with labs to be drawn at that time. 5. Mrs. Downs was instructed to contact us in the interim should questions or problems arise. ADDENDUM: Given that Ms. Downs has had such significant PPE/skin toxicities after just 3 cycles of the Xeloda, I would be concerned about DPYD and TYMS genetic polymorphisms should she require any fluorouracil in the future. These enzyme anormalities predispose affected patients to more serious reactions to the fluorouracil/fluoropyrimidines. Although generally it seems to be more excessive hematological and gastrointestinal toxicity, given Ms. Downs is a significant skin reaction I would be suspicious of this being a possible side effect as well. Signed By: Elmer Bird-RICHARD, AOKIMP Jose A Prince MD <<Signature on File>>
== END 2019-10-09 23:59 | disposition home or self-care (01) ==
LOC: ONCMED 07:08
PROVIDERS: PCP Nurse Practitioner Family; Visit Provider Nurse Practitioner
DX: C18.7 Malignant neoplasm of sigmoid colon (principal); K57.50 Diverticulosis of both small and large intestine without perforation or abscess without bleeding; L27.1 Localized skin eruption due to drugs and medicaments taken internally; F41.9 Anxiety disorder, unspecified; F32.9 Major depressive disorder, single episode, unspecified; E03.9 Hypothyroidism, unspecified; Z92.21 Personal history of antineoplastic chemotherapy; Z79.899 Other long term (current) drug therapy
CPT/HCPCS: 99214

== ENCOUNTER → 2019-10-28 15:01 | Outpatient (BNVA) | payer OTHER, SELFPAY | PROVIDERS: PCP Nurse Practitioner Family; Visit Provider Nurse Practitioner Family | DX: E03.9 Hypothyroidism, unspecified (principal) | CPT/HCPCS: 84443 ==

== ENCOUNTER 2019-11-30 | Outpatient (CLI) | payer OTHER, SELFPAY | END 2019-11-30 23:00 | disposition home or self-care (01) | LOC: ONCMED 12-28 12:25 | PROVIDERS: PCP Nurse Practitioner Family; Visit Provider Internal Medicine Hematology & Oncology | DX: C18.7 Malignant neoplasm of sigmoid colon (principal) | CPT/HCPCS: 80053; 85025 ==

== ENCOUNTER → 2020-01-26 09:29 | Outpatient (BNVA) | payer OTHER, SELFPAY | PROVIDERS: PCP Nurse Practitioner Family; Visit Provider Internal Medicine Rheumatology | DX: L94.3 Sclerodactyly (principal); Z79.899 Other long term (current) drug therapy; Z11.59 Encounter for screening for other viral diseases; Z11.1 Encounter for screening for respiratory tuberculosis; R76.8 Other specified abnormal immunological findings in serum; L81.9 Disorder of pigmentation, unspecified; I73.00 Raynaud's syndrome without gangrene; M19.90 Unspecified osteoarthritis, unspecified site | CPT/HCPCS: 36415; 82306; 85651; 86140; 86480; 86704; 86803; 87340; 99204 ==

== ENCOUNTER → 2020-02-22 09:07 | Outpatient (BNVA) | payer OTHER, SELFPAY | PROVIDERS: PCP Nurse Practitioner Family; Visit Provider Internal Medicine Rheumatology | DX: M34.9 Systemic sclerosis, unspecified (principal); Z79.899 Other long term (current) drug therapy; I73.00 Raynaud's syndrome without gangrene; L81.9 Disorder of pigmentation, unspecified; R76.8 Other specified abnormal immunological findings in serum; M19.041 Primary osteoarthritis, right hand; M19.042 Primary osteoarthritis, left hand | CPT/HCPCS: 99214 ==

== ENCOUNTER 2020-03-05 09:34 | Outpatient (CLI) | payer OTHER, SELFPAY ==
--- NOTE | 2020-03-05 09:42 | XR_ITS ---
WS: [id number] Exam: XR hand LT min 3V* [id number] Date/Time of Exam: 03/05/2020 9:42 AM Reason For Exam: inflammatory arthritis Findings: No acute fracture or dislocation. Severe degenerative change at the carpometacarpal joint of the thum b. Degenerative changes also noted in the IP and MP joints. [id number] articulation at the DIP join ts of the index and middle finger. Severe degeneration of the greater multangular. Lucency noted in t he proximal fifth metacarpal most likely representing focal osteoporosis. XR/XR hand LT min 3V* [id number] IMPRESSION: 1.. No fracture or dislocation. 2. Moderately advanced degenerative changes as detailed above.
--- NOTE | 2020-03-05 09:42 | XR_ITS ---
WS: [id number] Exam: XR hand RT min 3V* [id number] Date/Time of Exam: 03/05/2020 9:42 AM Reason For Exam: inflammatory arthritis Findings: No fracture or dislocation. Advanced degenerative changes noted in the DIP joints and also the carpom etacarpal joint of the thumb. Moderate degenerative changes also noted in the PIP joints and MP joint s. Normal soft tissues. XR/XR hand RT min 3V* [id number] IMPRESSION: 1. Degenerative changes as above. 2. No fracture or dislocation.
--- NOTE | 2020-03-05 09:42 | XR_ITS ---
WS: [id number] Exam: XR foot RT min 3V* [id number] Date/Time of Exam: 03/05/2020 9:42 AM Reason For Exam: inflammatory arthritis No acute fracture or dislocation. Degenerative change of the IP joints and the first MP joint. Normal soft tissues. Small posterior heel spur. XR/XR foot RT min 3V* [id number] IMPRESSION: 1. Degenerative changes. No fracture or dislocation.
--- NOTE | 2020-03-05 09:42 | XR_ITS ---
WS: [id number] Exam: XR foot LT min 3V* [id number] Date/Time of Exam: 03/05/2020 9:42 AM Reason For Exam: inflammatory arthritis No fracture or dislocation. Severe degeneration of the first MP joint. DJD of the IP joints. Tiny bernie l spurs. Normal soft tissues. Degenerative changes in the midfoot joints. XR/XR foot LT min 3V* [id number] IMPRESSION: 1. No fracture or dislocation. 2. Degenerative changes.
--- NOTE | 2020-03-05 09:42 | XR_ITS ---
WS: [id number] Exam: XR chest 2V* [id number] Date/Time of Exam: 03/05/2020 9:42 AM Reason For Exam: inflammatory arthritis Comparison 03/11/2019. Findings: The lungs are clear and fully expanded. Costophrenic angles are sharp. No infiltrates. Bronchovascula r relief appears normal. Cardiac silhouette is unremarkable. Bony elements are intact. XR/XR chest 2V* [id number] IMPRESSION: Unremarkable chest radiograph.
== END 2020-03-05 09:35 | disposition home or self-care (01) ==
LOC: RAD 09:37
PROVIDERS: PCP Nurse Practitioner Family; Visit Provider Internal Medicine Rheumatology
DX: M19.042 Primary osteoarthritis, left hand (principal); M19.041 Primary osteoarthritis, right hand; M19.072 Primary osteoarthritis, left ankle and foot; M19.071 Primary osteoarthritis, right ankle and foot
CPT/HCPCS: 71046; 73130; 73630

== ENCOUNTER → 2020-04-18 11:10 | Outpatient (BNVA) | payer MEDICARE, SELFPAY | PROVIDERS: PCP Nurse Practitioner Family; Visit Provider Surgery | DX: C18.7 Malignant neoplasm of sigmoid colon (principal) | CPT/HCPCS: 87635 ==

== ENCOUNTER 2020-04-24 08:51 | Day surgery (SDC) | payer MEDICARE, SELFPAY ==
[2020-04-24 09:10] VITALS: BP 104/64; PULSE 63; RESP 18; TEMP 36.2; O2SAT 96
[2020-04-24] MEDS: lidocaine 1% INJ 20 mL INTRADERMA (09:38)
[2020-04-24] MEDS: sodium chloride 0.9% 1,000 ML 30 ML IV (09:39)
--- NOTE | 2020-04-24 09:54 | W.PM.OPSUD ---
Surgery/Procedure H&P Update DATE OF PROCEDURE: April 24, 2020 DATE H&P PERFORMED: 04/09/20 H&P UPDATE INFORMATION: I have reviewed H&P completed within last 30 days, I have examined patient prior to procedure and No changes to prior documentation PREOP DIAGNOSIS: screening colonoscopy PLANNED PROCEDURE: Operation Date: 04/24/20 10:30 Proposed Procedures p Colonoscopy 81681 C18.7(Not Applicable) - Jose Thacker MD
--- NOTE | 2020-04-24 09:54 | ANES.PREANE2 ---
Pre-Anesthetic Assessment Pre-Anesthetic Assessment: Height/Weight: Height 1.78 m Weight 84.822 kg Temp Pulse Resp BP Pulse Ox 97.1 F L 63 18 104/64 96 04/24/20 09:10 04/24/20 09:10 04/24/20 09:10 04/24/20 09:10 04/24/20 09:10 Preop Diagnosis: screening colonoscopy Proposed Procedure: Operation Date: 04/24/20 10:30 Proposed Procedures p Colonoscopy 41700 C18.7(Not Applicable) - Jose Thacker MD Was Beta Shirley taken within 24 hours: N/A Last intake: Intake Last Liquid Date 04/23/20 Last Liquid Time 20:00 Last Solid Date 04/22/20 Last Solid Time 20:00 Social: Social History: No alcohol and No tobacco Exam: Pre-Anes Outpt Exam: alert, oriented x 3, clear to auscultation bilaterally and regular rate & rhythm Airway: Submandibular: WNL Cervical ROM: WNL MP: 2 Dentition: Partials Pulmonary: Pulmonary: None reported CV/HEM: CV/HEM: None reported : : None reported Hepatic: Hepatic: None reported GI: Comments: History of Colon CA s/p resection Metabolic: Metabolic: Thyroid Musc/skel: Musc/skel: None reported Neuropsych: Neuropsych: None reported Anesthetic Plan: ASA status: 2 Anesthesia: MAC Meds/Allergies Current Medications: Current Medications Generic Name Dose Route Start Last Admin Trade Name Freq PRN Reason Stop Dose Admin Sodium Chloride 1,000 mls @ 30 ml s/hr 04/23/20 13:45 04/24/20 09:39 Sodium Chloride 0.9% IV 04/24/20 13:44 30 mls/hr .Q24H GLEN Administration Lidocaine HCl 0.1 ml 04/23/20 13:35 04/24/20 09:38 Lidocaine 1% Inj 20 Ml INTRADERMA 04/24/20 13:34 0.1 ml PRN PRN Administration anesthetic prior to IV start PFSH Anesthesia PFSH: Medical History (Updated 04/09/20 @ 14:39 by Jose Thacker MD) Cancer of sigmoid colon Depression Hypothyroid Pilar cyst Raynauds disease Systemic sclerosis with limited cutaneous involvement Surgical History H/O colonoscopy 2019 History of colon resection History of hysterectomy History of tonsillectomy History of tubal ligation Family History Father Diabetes Denies family history of Rheumatoid arthritis Lupus CAD (coronary artery disease) Chronic kidney disease (CKD) Anesthesia complication Bleeding disorder Lung disease Cancer Hypertension Stroke Social History Smoking and tobacco status: former smoker Quit status (tobacco): has quit using tobacco Year quit tobacco: 2009 Former quit date comment: smoked 35 yrs Second hand smoke exposure: No Alcohol intake: current Lives independently: Yes Household members: spouse Marital status: Current occupational status: retired History of recent travel: No Current gender identity: Female Data Anesthesia Cardiac Studies: No Data to Display
[2020-04-24 10:40] VITALS: BP 90/59; PULSE 59; RESP 16; TEMP 36.4; O2SAT 97
--- NOTE | 2020-04-24 10:44 | ANE.PACU2 ---
Inpatient post-anesthesia follow up: Airway intact: Yes Vital signs: Temperature 97.5 F Pulse Rate 59 Respiratory Rate 16 Blood Pressure 90/59 Pulse Oximetry 97 Oxygen Delivery Me thod Room Air Oxygen Flow Rate Fraction of Inspir ed Oxygen Hydration adequate: Yes Nausea and vomiting: No Mental status: Baseline
[2020-04-24 10:56] VITALS: BP 98/63; PULSE 56; RESP 16; O2SAT 97
--- NOTE | 2020-04-24 11:14 | ANE.PACU2 ---
Inpatient post-anesthesia follow up: Airway intact: Yes Vital signs: Temperature 97.5 F Pulse Rate 56 Respiratory Rate 16 Blood Pressure 98/63 Pulse Oximetry 97 Oxygen Delivery Me thod Room Air Oxygen Flow Rate Fraction of Inspir ed Oxygen Hydration adequate: Yes Nausea and vomiting: No Pain level: 1 Mental status: Baseline
== END 2020-04-24 11:00 | disposition home or self-care (01) ==
PROVIDERS: PCP Nurse Practitioner Family; Visit Provider Surgery
PROC: 0DJD8ZZ Inspection of Lower Intestinal Tract, Via Natural or Artificial Opening Endoscopic (ICD-10-PCS; CPT 45378; principal; 2020-04-24 10:30)
DX: Z12.11 Encounter for screening for malignant neoplasm of colon (principal); Z85.038 Personal history of other malignant neoplasm of large intestine; Z90.49 Acquired absence of other specified parts of digestive tract; E03.9 Hypothyroidism, unspecified; Z87.891 Personal history of nicotine dependence
CPT/HCPCS: 12345; 45378; J7030

== ENCOUNTER 2020-04-26 13:40 | Outpatient (CLI) | payer MEDICARE, OTHER, SELFPAY ==
--- NOTE | 2020-04-26 15:00 | CT_ITS ---
WS: [id number] CT scan of the abdomen and pelvis with IV contrast. Additional two-dimensional coronal and sagittal r econstruction was performed. 04/26/2020 Clinical Data: R76.8 - Other specified abnormal immunological findings in serum Comparison: CT abdomen and pelvis, 03/30/2019. DLP: 1141.[address] scans at [facility] use at least one of these dose optimization techniques: automat ed exposure control; mA and/or kV adjustment per patient size (includes targeted exams where dose is matched to clinical indication); or iterative reconstruction. Findings: The lower lungs show no nodules, masses or effusions. The liver, gallbladder, spleen, adrenal glands and pancreas are normal. The kidneys show equal bilateral contrast excretion with no cyst or masses. The abdominal aorta is normal in size. No appendicitis or diverticulitis is seen. There is fecal material throughout the colon. There is a v entral hernia which contains mostly fat but a small portion of transverse colon is included. There is oral contrast within the small bowel. No abscess, ascites, adenopathy, mass, obstruction or free air is seen. The bladder is unremarkable. The uterus is absent. No inguinal hernia is seen. The bones of the lower thorax, lumbar spine, pelvis, and hips are normal. CT/CT abdomen pelvis w con* [id number] Impression: Negative for acute intra-abdominal or pelvic abnormalities.
[2020-04-26] MEDS: iohexol 300 mg/mL 50 mL Btl PO (15:10)
[2020-04-26 15:18] LABS: Blood Urea Nitrogen 12 mg/dL (8-23)
[2020-04-26] MEDS: iohexol 300 mg/mL 100 mL Btl IV (15:24)
== END 2020-04-26 13:41 | disposition home or self-care (01) ==
LOC: RADWPI 13:44
PROVIDERS: PCP Nurse Practitioner Family; Visit Provider Surgery
DX: R76.8 Other specified abnormal immunological findings in serum (principal); C18.7 Malignant neoplasm of sigmoid colon
CPT/HCPCS: 74177; 82565; 84520; Q9967

== ENCOUNTER → 2020-07-04 10:00 | Outpatient (BNVA) | payer MEDICARE, OTHER, SELFPAY | PROVIDERS: PCP Nurse Practitioner Family; Visit Provider Family Medicine | DX: F41.9 Anxiety disorder, unspecified (principal); Z79.899 Other long term (current) drug therapy; M19.90 Unspecified osteoarthritis, unspecified site | CPT/HCPCS: 80076; 82565; 85025; 85651; 86140; 87517 ==

== ENCOUNTER → 2020-10-29 11:35 | Outpatient (BNVA) | payer MEDICARE, OTHER, SELFPAY | PROVIDERS: PCP Nurse Practitioner Family; Visit Provider Family Medicine | DX: E03.9 Hypothyroidism, unspecified (principal); M34.9 Systemic sclerosis, unspecified; Z13.6 Encounter for screening for cardiovascular disorders | CPT/HCPCS: 80053; 80061; 84443; 85025 ==

== ENCOUNTER → 2021-04-17 09:58 | Outpatient (BNVA) | payer MEDICARE, OTHER, SELFPAY | PROVIDERS: PCP Nurse Practitioner Family; Visit Provider Nurse Practitioner Family | DX: Z13.6 Encounter for screening for cardiovascular disorders (principal); E03.9 Hypothyroidism, unspecified; E55.9 Vitamin D deficiency, unspecified | CPT/HCPCS: 80053; 80061; 82306; 84443; 85025 ==

== ENCOUNTER → 2021-04-22 12:12 | Outpatient (BNVA) | payer MEDICARE, OTHER, SELFPAY | PROVIDERS: PCP Nurse Practitioner Family; Visit Provider Nurse Practitioner Family | DX: D72.819 Decreased white blood cell count, unspecified (principal); R89.9 Unspecified abnormal finding in specimens from other organs, systems and tissues | CPT/HCPCS: 85025 ==

== ENCOUNTER 2022-01-13 13:50 | Emergency (ER) | payer MEDICARE, OTHER, SELFPAY ==
[2022-01-13 13:58] VITALS: BP 112/70; PULSE 64; RESP 21; TEMP 36.4; O2SAT 95; BMI 29.0
--- NOTE | 2022-01-13 14:03 | ECG_ITS ---
[facility] Test Date: 2022-01-13 Pat Name: Maryana Downs Department: Room: Gender: Female Senior Svp: : 1955 Requested By: Franklin Rivera Order Number: [id number] Cristiane MD: Yvonne Paiz M.D. Measurements Intervals [place] Rate: 60 P: 54 [place]: 155 QRS: 22 QRSD: 102 T: 72 QT: 428 QTc: 428 Interpretive Statements SINUS RHYTHM NONSPECIFIC T-WAVE ABNORMALITY No previous ECG available for comparison Electronically Signed On 01-13-2022 18:58:33 CDT by Yvonne Paiz M.D. [email or web address]
--- NOTE | 2022-01-13 14:50 | CTR_ITS ---
PROCEDURE INFORMATION: Exam: CT Head Without Contrast Exam date and time: 01/13/2022 2:59 PM Age: 66 years old Clinical indication: Syncope and collapse TECHNIQUE: Imaging protocol: Computed tomography of the head without contrast. Radiation optimization: All CT scans at this facility use at least one of these dose optimization techniques: automated exposure control; mA and/or kV adjustment per patient size (includes targeted exams where dose is matched to clinical indication); or iterative reconstruction. COMPARISON: No relevant prior studies available. RADIATION DOSE METRICS: Total DLP (mGy-cm): 1157.38 FINDINGS: Brain: Normal. No hemorrhage. Unremarkable white matter. No mass effect. Cerebral ventricles: No ventriculomegaly. Paranasal sinuses: Paranasal sinus opacifications. Mastoid air cells: Visualized mastoid air cells are well aerated. Bones/joints: Unremarkable. No acute fracture. Soft tissues: Unremarkable. CT/CT head wo con* [id number] IMPRESSION: Negative for intracranial hemorrhage or mass effect.
--- NOTE | 2022-01-13 14:50 | XRR_ITS ---
PROCEDURE INFORMATION: Exam: XR Chest Exam date and time: 01/13/2022 2:55 PM Age: 66 years old Clinical indication: Other: Syncope TECHNIQUE: Imaging protocol: Radiologic exam of the chest. Views: 1 view. COMPARISON: CR XR chest 2V* [id number] 03/05/2020 9:46 AM FINDINGS: Lungs: Unremarkable. No consolidation. Pleural spaces: Unremarkable. No pleural effusion. No pneumothorax. Heart/Mediastinum: Unremarkable. No cardiomegaly. Bones/joints: Unremarkable. XR/XR chest 1V portable [id number] IMPRESSION: No acute findings.
[2022-01-13 15:49] LABS: Basophils % 0.3 %; Eosinophils # 0.1 10^3/uL (0.0-0.8); Eosinophils % 0.7 %; Hematocrit 45.3 % (37.0-47.0); Hemoglobin 14.3 g/dL (11.5-15.3); Lymphocytes # 0.7 10^3/uL (0.8-4.8); Lymphocytes % 6.3 %; Mean Corpuscular HGB Conc 31.6 g/dL (30.0-36.0); Mean Corpuscular Hemoglobin 29.1 pg (28.0-34.0); Mean Corpuscular Volume 92.1 fl (81-99); Mean Platelet Volume 9.5 fL (7.4-10.4); Monocytes # 0.4 10^3/uL (0.2-0.9); Monocytes % 4.1 %; Neutrophils # 9.45 10^3/uL (1.8-7.7); Neutrophils % 88.2 %; Nucleated Red Blood Cells % 0 %; Platelet Count 237 10^3/cmm (130-400); Red Blood Count 4.92 10^6/uL (4.1-5.3); Red Cell Distribution Width 13.2 % (12.1-15.1); White Blood Count 10.7 10^3/uL (4.0-10.0)
--- NOTE | 2022-01-13 15:51 | W.ED.GENADLT ---
HPI - General Adult General: Chief complaint: Syncope Stated complaint: passed out Time Seen by Provider: 01/13/22 14:50 History of Present Illness: HPI: [66]yo patient w/ hx of hypothyroidism presents emergency after her episode of syncope at 9 AM this morning. 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 The incident was witnessed by the patient?s friends who denied LOC today. Patient could not recall the incident but denies any post-ictal confusion, tongue biting or bladder/bowel incontinence. He tells me that she had no prodrome and found herself down on the ground. Patient has bruises over the left face. Patient denies any prior hx of syncope in the past. No associated symptoms of chest pain, shortness of breath, palpitations or focal weakness right before the incident. No family hx of sudden cardiac or unexplained . Onset: 9am Duration: once Location: streets Severity: moderate Associated symptoms: Deny chest pain, dyspnea, nausea, palpitations or vomiting Review of Systems Const: Denies: fever(s) or chills Eyes: Denies: change in vision ENMT: Denies: mouth pain Card: Denies: chest pain or palpitations Resp: Denies: dyspnea or non-productive cough GI: Denies: abdominal pain, nausea, vomiting or diarrhea : Denies: dysuria Musc: Denies: extremity pain Skin/Breast: Reports: new lesions (+L facial bruises) Neuro: Reports: other (+syncope); Denies: weakness in extremities Psych: Reports: other (Normal mood) Lam/Lymph: Denies: easy bruising PFSH ED PFSH: Medical History (Updated 01/21/22 @ 00:01 by ) Cancer of sigmoid colon Depression Hypothyroid Pilar cyst Raynauds disease Syncope and collapse Systemic sclerosis with limited cutaneous involvement Vitamin D deficiency Surgical History H/O colonoscopy (04/24/20) 2019 History of colon resection History of hysterectomy History of tonsillectomy History of tubal ligation Family History Father Diabetes Denies family history of Rheumatoid arthritis Lupus CAD (coronary artery disease) Chronic kidney disease (CKD) Anesthesia complication Bleeding disorder Lung disease Cancer Hypertension Stroke Social History Smoking and tobacco status: former smoker (Smoked 25 yrs, quit 15 yrs go) Quit status (tobacco): has quit using tobacco Year quit tobacco: 2009 Former quit date comment: smoked 35 yrs Second hand smoke exposure: No Alcohol intake: current Lives independently: Yes Household members: spouse Marital status: Current occupational status: retired History of recent travel: No Current gender identity: Female Physical Exam Const: COMMON NORMALS: alert HENMT: COMMON NORMALS: atraumatic HEAD & SCALP: atraumatic MOUTH: moist mucous membranes not abnormal Eye: COMMON NORMALS: EOMs intact bilaterally and conjunctivae normal CONJUNCTIVA: Yes conjunctivae normal Neck/C-Spine: COMMON NORMALS: full ROM and supple Resp: COMMON NORMALS: normal respiratory effort and clear to auscultation bilaterally AUSCULTATION: clear to auscultation bilaterally Cardio: COMMON NORMALS: regular rate RATE: regular rate OTHER: 2+ radial pusles b/l GI: COMMON NORMALS: Soft to palpation and non-tender PALPATION: Yes Soft to palpation OTHER: No focal TTP. NO guarding rebound, guarding, rigidity. No CVA tenderness to percussion. Neg Campuzano/Neg McBurney's point tenderness, no suprabupic tenderness to palpation. Extremity: COMMON NORMALS: full ROM Neuro: SENSORIUM/ORIENTATION: Yes alert MOTOR EXAM: No Abnormal motor strength present and Other motor observations present (no focal motor deficits) OTHER: Mental status? Awake, alert, and oriented to self, year, month, location, and situation.? Following simple axial and appendicular commands.? Has appropriate fund of knowledge, comprehension, and insight.? Able to recall and understands pertinent aspects of medical history and current treatment status.? ? Language? Speech is fluent without word-finding difficulties.? Intact naming, expression, bindery helper, and repetition.? ? Cranial nerves? 2,3,4,6: PERRL, EOMI with no nystagmus. 5: Intact sensation to light touch, symmetric? 7: Smile symmetrical, no facial droop.? 8: Hearing grossly intact.? 9,10: Normal palate movement.? 11: Normal strength in trapezius bilaterally 12: Tongue protrudes midline.? ? Motor examination? Normal bulk & tone. Strength as follows (R/L): Delts (5/5), Biceps (5/5), Triceps (5/5), Wrist ext (5/5), hip flexors (5/5), plantarflexors (5/5), dorsiflexors (5/5). ? Sensation? Light Touch: Grossly intact and equal in upper and lower extremities bilaterally? Romberg: Negative.? Distal joint position sense intact ? Coordination? Rgakni-ws-pjfg-finger movements intact without dysmetria or past-pointing.? Rapid fingertaps: preserved amplitude without decriment.? No tremor, myoclonus or truncal ataxia.? ? Gait/stance? Steady, normal narrow base gait with appropriate arm swing and turning.? Tandem gait without hesitation or loss of balance. Psych: COMMON NORMALS: speech normal SPEECH: Yes normal speech MOOD & AFFECT: Yes euthymic mood Skin: NARRATIVE SKIN EXAM: +L facial bruise and swelling over L maxillary face Course Vital Signs: Vital signs: Vital Signs Temperature 98.3 F 01/13/22 19:13 Pulse Rate 74 01/13/22 19:13 Respiratory Rate 21 H 01/13/22 19:13 Blood Pressure 117/55 01/13/22 19:13 Pulse Oximetry 99 01/13/22 19:13 Oxygen Delivery Me thod 01/13/22 16:29 MDM - General Adult Medical Decision Making [66]yo patient w/ hx of hypothyroidism presenting to the ED with Syncope. No association with chest pain, dyspnea, palpitations, or focal neurological deficits. HDS Neuro intact. Fingerstick wnl. Given history, exam and workup, presentation not consistent with seizures given a short time course, no postictal state, no seizure activity. Low suspicion for acute neurologic catastrophes to include ICH given lack of trauma, risk factors for bleeding diathesis, or neurogenic causes of syncope. Low suspicion for vascular catastrophes to include PE, thoracic aortic dissection, AAA rupture. Presentation not consistent with acute life threatening arrhythmia, structural heart disease, electrical conduction abnormalities, or ACS. Workup: CBC, BMP, troponin x 2, EKG x 2 Intervention: Serial reevaluation, telemetry, PO challenge, IVF Findings: EKG: No e/o STEMI. No evidence of Brugada?s sign, delta wave, epsilon wave, significantly prolonged QTc, HOCM or malignant arrhythmia. [6:25pm] On reassessment, patient denies any syncope or near syncope episodes in the ER. Telemetry without any dysrhythmia. Patient has been able to tolerate PO and ambulate in the ER without issues. History more consistent with situational/reflex syncope vs orthostatic/decreased fluid intake. Troponin x 2 wnl. EKG is non-ischemic. CT head negative for any acute findings. Given age, I performed shared decision-making with patient regarding admission versus discharge today, and patient prefers to be discharged. I have discussed given patient's risk factors that she would better off admitted to the hospital. Upon hearing this, patient elects to go home and follow up with Caridology. I explained the risks of leaving the hospital today including lethal arrythemia, FL, strokens and even . Patient verbalizes understanding of these discussed risk and elect for the alternative of following up earlier next week for evaluation by Cardiology. Patient verbalizes understanding to return for any worsening symptoms including chest pain, dyspnea, fatigue, arm pain/jaw pain/back pain or any new or concerning issues. Hemoglobin of 14.3 which is consistent with baseline. Patient is currently HDS, ambulated without any difficulties. Given the fact the patient wants to go home. Given patient close follow-up with cardiology. In addition, patient will be set up with a event monitor. Given patient strict return precaution for any signs of syncope or lightheadedness, or any new concerning complaints. I have given patient follow up with our correctional case records supervisor to be seen by our outpatient Cardiology. Patient aware of a call from our correctional case records supervisor to schedule for appointment(s) and verbalizes understanding of the importance of following up. Disposition: Discharge. Patient is at baseline at this time. Return precautions expressed and understood in person. Advised follow up with a primary care provider or clinic physician in the next 24-48 hours. Given return instructions for any new or concerning symptoms including chest pain, focal neurological deficits, dyspnea, or any new or concerning findings. Patient will be set up with an event monitor to go home with, Lab Data : 01/13/22 15:46 01/13/22 15:46 Radiology Impressions Chest X-Ray 01/13/22 14:50 IMPRESSION: No acute findings. Head CT 01/13/22 14:50 IMPRESSION: Negative for intracranial hemorrhage or mass effect. Face CT 01/13/22 17:25 IMPRESSION: 1. Sinusitis. 2. No facial fracture is identified. Laboratory Results WBC 10.7 10^3/uL (4.0-10.0) H 01/13/22 15:46 RBC 4.92 10^6/uL (4.1-5.3) 01/13/22 15:46 Hgb 14.3 g/dL (11.5-15.3) 01/13/22 15:46 Hct 45.3 % (37.0-47.0) 01/13/22 15:46 MCV 92.1 fl (81-99) 01/13/22 15:46 MCH 29.1 pg (28.0-34.0) 01/13/22 15:46 MCHC 31.6 g/dL (30.0-36.0) 01/13/22 15:46 RDW 13.2 % (12.1-15.1) 01/13/22 15:46 Plt Count 237 10^3/cmm (130-400) 01/13/22 15:46 MPV 9.5 fL (7.4-10.4) 01/13/22 15:46 Neut % (Auto) 88.2 % 01/13/22 15:46 Lymph % (Auto) 6.3 % 01/13/22 15:46 Hinds % (Auto) 4.1 % 01/13/22 15:46 Eos % (Auto) 0.7 % 01/13/22 15:46 Baso % (Auto) 0.3 % 01/13/22 15:46 Neut # (Auto) 9.45 10^3/uL (1.8-7.7) H 01/13/22 15:46 Lymph # (Auto) 0.7 10^3/uL (0.8-4.8) L 01/13/22 15:46 Hinds # (Auto) 0.4 10^3/uL (0.2-0.9) 01/13/22 15:46 Eos # (Auto) 0.1 10^3/uL (0.0-0.8) 01/13/22 15:46 Baso # (Auto) 0.0 10^3/uL (0.0-0.1) 01/13/22 15:46 Nucleated RBC % (auto) 0 % 01/13/22 15:46 Nucleated RBCs # 0.0 /100WBC 01/13/22 15:46 Sodium 142 mmol/L (136-145) 01/13/22 15:46 Potassium 4.1 mmol/L (3.5-5.1) 01/13/22 15:46 Chloride 103 mmol/L (98-107) 01/13/22 15:46 Carbon Dioxide 26 mmol/L (22-29) 01/13/22 15:46 Anion Gap 17.1 (5-19) 01/13/22 15:46 BUN 15 mg/dL (8-23) 01/13/22 15:46 Creatinine 0.6 mg/dL (0.5-0.9) 01/13/22 15:46 GFR Calculation 100.0 mL/min (90-130) 01/13/22 15:46 Glucose 109 mg/dL (65-115) 01/13/22 15:46 Calculated Osmolality 295 mOsm/kg (285-295) 01/13/22 15:46 Calcium 9.8 mg/dL (8.5-10.5) 01/13/22 15:46 Troponin T Baseline 6 ng/L (0-10) 01/13/22 15:46 Troponin T 120 Minute 6.00 ng/L (0-10) 01/13/22 18:12 Delta Troponin T 0 ABS# (0-10) 01/13/22 18:12 Imaging Data Other Imaging: Radiologist's impression: [place] [address] CT Scan Report Signed Patient: Maryana Downs Unit #: [id number] : 1955 Age/Sex: 66 / F ADM Date: 01/13/22 Loc: ER Room/Bed: Attending Dr: Ordering Provider/Ordering MD: Gamal Thorpe MD Date of Service: 01/13/22 Procedure(s): CT facial bones wo con* [id number] Accession Number(s): [id number] Report Number: [id number] PROCEDURE INFORMATION: Exam: CT Maxillofacial Without Contrast Exam date and time: 01/13/2022 5:36 PM Age: 66 years old Clinical indication: Injury or trauma; Fall; Blunt trauma (contusions or hematomas); Orbit/periorbital; Left; Additional info: Facial bruises TECHNIQUE: Imaging protocol: Computed tomography of the of the face without contrast. Radiation optimization: All CT scans at this facility use at least one of these dose optimization techniques: automated exposure control; mA and/or kV adjustment per patient size (includes targeted exams where dose is matched to clinical indication); or iterative reconstruction. COMPARISON: CT head wo con* [id number] 01/13/2022 2:59 PM RADIATION DOSE METRICS: Total DLP (mGy-cm): 594.19 FINDINGS: Orbital cavities: Orbits are normal. Globes are unremarkable. Bones/joints: No facial fracture is demonstrated. Paranasal sinuses: There is mucosal thickening and fluid of the left maxillary sinus. This is increased from the earlier examination and may represent some sinusitis. There is also a small amount of fluid in the left frontal sinus not significantly changed . There is opacification and mucosal thickening in the left sphenoid sinus and left ethmoid air cells in keeping with sinusitis not changed. Soft tissues: There is some minimal soft tissue contusion in the infraorbital region and cheek on the left. Nasal cavity: There are bilateral rosy bullosa. There is nasal septal deviation towards the right with a spur along the right side of the nasal septum. CT/CT facial bones wo con* [id number] IMPRESSION: 1. Sinusitis. 2. No facial fracture is identified. ? Dictated By: Maynor Martell Signed By: Maynor Martell Signed Date/Time: 01/13/22 1827 DD/ [address] [address] [address] Scan Report Signed Patient: Maryana Downs Unit #: [id number] : 1955 Age/Sex: 66 / F ADM Date: 01/13/22 Loc: ER Room/Bed: Attending Dr: Ordering Provider/Ordering MD: Gamal Thorpe MD Date of Service: 01/13/22 Procedure(s): CT head wo con* [id number] Accession Number(s): [id number] Report Number: [id number] PROCEDURE INFORMATION: Exam: CT Head Without Contrast Exam date and time: 01/13/2022 2:59 PM Age: 66 years old Clinical indication: Syncope and collapse TECHNIQUE: Imaging protocol: Computed tomography of the head without contrast. Radiation optimization: All CT scans at this facility use at least one of these dose optimization techniques: automated exposure control; mA and/or kV adjustment per patient size (includes targeted exams where dose is matched to clinical indication); or iterative reconstruction. COMPARISON: No relevant prior studies available. RADIATION DOSE METRICS: Total DLP (mGy-cm): 1157.38 FINDINGS: Brain: Normal. No hemorrhage. Unremarkable white matter. No mass effect. Cerebral ventricles: No ventriculomegaly. Paranasal sinuses: Paranasal sinus opacifications. Mastoid air cells: Visualized mastoid air cells are well aerated. Bones/joints: Unremarkable. No acute fracture. Soft tissues: Unremarkable. CT/CT head wo con* [id number] IMPRESSION: Negative for intracranial hemorrhage or mass effect. ? Dictated By: Henrry Parker MD Signed By: Henrry Parker MD Signed Date/Time: 01/13/[address] [place] [id number] XRay Report Signed Patient: Maryana Downs Unit #: [id number] : 1955 Age/Sex: 66 / F ADM Date: 01/13/22 Loc: ER Room/Bed: Attending Dr: Ordering Provider/Ordering MD: Gamal Thorpe MD Date of Service: 01/13/22 Procedure(s): XR chest 1V portable [id number] Accession Number(s): [id number] Report Number: [id number] PROCEDURE INFORMATION: Exam: XR Chest Exam date and time: 01/13/2022 2:55 PM Age: 66 years old Clinical indication: Other: Syncope TECHNIQUE: Imaging protocol: Radiologic exam of the chest. Views: 1 view. COMPARISON: CR XR chest 2V* [id number] 03/05/2020 9:46 AM FINDINGS: Lungs: Unremarkable. No consolidation. Pleural spaces: Unremarkable. No pleural effusion. No pneumothorax. Heart/Mediastinum: Unremarkable. No cardiomegaly. Bones/joints: Unremarkable. XR/XR chest 1V portable [id number] IMPRESSION: No acute findings. ? Dictated By: Henrry Parker MD Signed By: Henrry Parker MD Signed Date/Time: 01/13/22 1526 DD/ 1455 Discharge Plan Discharge Patient Disposition: Home Clinical Impression: Syncope and collapse Condition: Stable Prescriptions: No Action procyanidolic oligomers 50 mg capsule 200 mg PO QAM Euthyrox 75 mcg tablet 75 mcg PO QAM Discharge Orders: Discharge ED (Routine); Ordered 01/13/22 Ordered By: Gamal Thorpe Other Ambulatory Orders: DME: Miscellaneous (Order) Location: None Selected Ordered By: Gamal Thorpe Discharge Diet: Advance as tolerated Discharge Activity: Increase activity as tolerated Patient Instructions: Syncope (ED) Activity Restrictions/Additional Instructions: Please come back to the emergency room for any more breakthrough episodes of passing out. Come back if any weakness in her arms, drooling, difficulty speaking, any neurological symptoms, chest pain/shortness of breath/palpitation or any new or concerning issues. Please do not swim, bathe, operate heavy machinery or drive a vehicle unattended. Our correctional case records supervisor will have you follow-up with Cardiology in the next few days. You would be expected to have a phone call with our correctional case records supervisor who will put you on the schedule. You can expect a call from us in the next 2-3 days. If you don't hear from us, call us back in the emergency room at [phone]. Please come back to the emergency room for any more breakthrough episodes of passing out. Come back if any weakness in her arms, drooling, difficulty speaking, any neurological symptoms. Please do not swim bathe or drive a vehicle unattended. Coding Level of Care Code ED Machine Baster for Melissag Fwd Exam Comprehensive
[2022-01-13 16:11] LABS: Troponin(5th) Baseline 6 ng/L (0-10)
[2022-01-13] MEDS: sodium chloride 0.9% 500 ML IV (16:22)
[2022-01-13 16:23] VITALS: BP 114/68; BP 115/88; BP 119/68; PULSE 64; PULSE 67; PULSE 68
[2022-01-13 16:29] VITALS: BP 119/68; PULSE 66; RESP 21; O2SAT 98
[2022-01-13 16:35] LABS: Anion Gap 17.1 (5-19); Blood Urea Nitrogen 15 mg/dL (8-23); Calcium 9.8 mg/dL (8.5-10.5); Carbon Dioxide 26 mmol/L (22-29); Chloride 103 mmol/L (98-107); Glucose 109 mg/dL (65-115); Osmolality Calculated 295 mOsm/kg (285-295); Potassium 4.1 mmol/L (3.5-5.1); Sodium 142 mmol/L (136-145)
--- NOTE | 2022-01-13 16:50 | ECG_ITS ---
[facility] Test Date: 2022-01-13 Pat Name: Maryana Downs Department: Room: Gender: Female [employer]: : 1955 Requested By: Gamal Thorpe Order Number: [id number] Cristiane MD: Yvonne Paiz M.D. Measurements Intervals Winston Rate: 65 P: 60 WA: 169 QRS: 16 QRSD: 101 T: 66 QT: 418 QTc: 435 Interpretive Statements SINUS RHYTHM NONSPECIFIC T-WAVE ABNORMALITY Compared to ECG 01/13/2022 14:06:16 No significant changes Electronically Signed On 01-13-2022 19:03:16 CDT by Yvonne Paiz M.D. [email or web address] center [email or web address] [email or web address] akron general lodi hospitalPearls of Wisdom [employer]/store/OM/[id number]
--- NOTE | 2022-01-13 17:25 | CTR_ITS ---
PROCEDURE INFORMATION: Exam: CT Maxillofacial Without Contrast Exam date and time: 01/13/2022 5:36 PM Age: 66 years old Clinical indication: Injury or trauma; Fall; Blunt trauma (contusions or hematomas); Orbit/periorbital; Left; Additional info: Facial bruises TECHNIQUE: Imaging protocol: Computed tomography of the of the face without contrast. Radiation optimization: All CT scans at this facility use at least one of these dose optimization techniques: automated exposure control; mA and/or kV adjustment per patient size (includes targeted exams where dose is matched to clinical indication); or iterative reconstruction. COMPARISON: CT head wo con* [id number] 01/13/2022 2:59 PM RADIATION DOSE METRICS: Total DLP (mGy-cm): 594.19 FINDINGS: Orbital cavities: Orbits are normal. Globes are unremarkable. Bones/joints: No facial fracture is demonstrated. Paranasal sinuses: There is mucosal thickening and fluid of the left maxillary sinus. This is increased from the earlier examination and may represent some sinusitis. There is also a small amount of fluid in the left frontal sinus not significantly changed . There is opacification and mucosal thickening in the left sphenoid sinus and left ethmoid air cells in keeping with sinusitis not changed. Soft tissues: There is some minimal soft tissue contusion in the infraorbital region and cheek on the left. Nasal cavity: There are bilateral rosy bullosa. There is nasal septal deviation towards the right with a spur along the right side of the nasal septum. CT/CT facial bones wo con* [id number] IMPRESSION: 1. Sinusitis. 2. No facial fracture is identified.
[2022-01-13 19:09] LABS: Troponin 5 2HR Delta 0 ABS# (0-10)
[2022-01-13 19:13] VITALS: BP 117/55; PULSE 74; RESP 21; TEMP 36.8; O2SAT 99
--- NOTE | 2022-01-15 10:34 | DCPLANNER ---
Addendum entered by Karen Daily 02/04/22 15:41: Patient had a follow up appointment scheduled with [facility] - patient did attend appointment. Addendum entered by Karen Daily 01/17/22 07:39: Patient has a follow up appointment scheduled for Thursday, February 03, 2022 at 10:[address] Del Cid at [facility]. Clinic will call patient with appointment information. Original Note: equipment hire manager had message to schedule a follow up appointment for patient with cardiology. equipment hire manager sent patients information to the front office staff at [facility]. Patients information will be printed and reviewed. Clinic will call patient with appointment information.
--- NOTE | 2022-01-20 10:14 | DCPLANNER ---
Addendum entered by Karen Daily 01/20/22 10:28: export manager called [facility], spoke with Marta Martin, explained that patient does not have a pcp, and that rn field case manager is unable to reach patient to discuss getting established with a primary care physician. A note was placed on patients chart for safety intern to see and order a monitor if they feel it necessary. Original Note: export manager had message to schedule an outpatient halter monitor for patient. export manager called patient to confirm who patient sees for primary care. export manager called phone number [phone], unable to speak with patient at this time, a voicemail was left for patient to return rifle case repairer phone call. export manager did not send order to [facility] to be scheduled due to not having a primary care physician on file.
== END 2022-01-13 19:18 | disposition home or self-care (01) ==
PROVIDERS: Emergency Provider Emergency Medicine
DX: R55 Syncope and collapse (principal); Z87.891 Personal history of nicotine dependence
CPT/HCPCS: 70450; 70486; 71045; 80048; 84484; 85025; 93005; 96360; 96361; 99285; J7040

== ENCOUNTER → 2022-02-03 10:21 | Outpatient (BNVA) | payer MEDICARE, OTHER, SELFPAY | PROVIDERS: PCP Family Medicine; Visit Provider Internal Medicine Cardiovascular Disease | DX: R55 Syncope and collapse (principal); E03.9 Hypothyroidism, unspecified; I73.00 Raynaud's syndrome without gangrene; M34.89 Other systemic sclerosis; R94.31 Abnormal electrocardiogram [ECG] [EKG] | CPT/HCPCS: 99203; 99204 ==

== ENCOUNTER → 2022-03-21 10:30 | Outpatient (BNVA) | payer MEDICARE, OTHER, SELFPAY | PROVIDERS: PCP Family Medicine; Visit Provider Family Medicine | DX: E03.9 Hypothyroidism, unspecified (principal); I73.00 Raynaud's syndrome without gangrene; Z12.31 Encounter for screening mammogram for malignant neoplasm of breast | CPT/HCPCS: 80053; 80061; 84443; 85025 ==

== ENCOUNTER → 2022-03-25 14:07 | Outpatient (BNVA) | payer MEDICARE, OTHER, SELFPAY | PROVIDERS: PCP Family Medicine; Visit Provider Family Medicine | DX: M25.561 Pain in right knee (principal) | CPT/HCPCS: 73562 ==

== ENCOUNTER 2022-05-30 17:24 | Emergency (ER) | payer MEDICARE, SELFPAY ==
[2022-05-30 17:25] VITALS: PULSE 71; RESP 18; TEMP 36.6; O2SAT 98; BMI 26.9
[2022-05-30 18:00] VITALS: BP 134/78; PULSE 76; O2SAT 97
--- NOTE | 2022-05-30 18:10 | CTR_ITS ---
PROCEDURE INFORMATION: Exam: CT Abdomen And Pelvis With Contrast Exam date and time: 05/30/2022 8:50 PM Age: 67 years old Clinical indication: Abdominal pain; Generalized; Prior surgery; Surgery date: 6+ months; Surgery type: Colon resection 2019 for sigmoid CA, hysterectomy; Additional info: Abd pain TECHNIQUE: Imaging protocol: Computed tomography of the abdomen and pelvis with contrast. Radiation optimization: All CT scans at this facility use at least one of these dose optimization techniques: automated exposure control; mA and/or kV adjustment per patient size (includes targeted exams where dose is matched to clinical indication); or iterative reconstruction. Contrast material: OMNI 350; Contrast volume: 100 ml; Contrast route: INTRAVENOUS (IV); COMPARISON: CT abdomen pelvis w con* [id number] 04/26/2020 3:22 PM RADIATION DOSE METRICS: Total DLP (mGy-cm): 3443.56 FINDINGS: Lungs: Small amount of basilar atelectasis within the posterior lung bases. Fluid is seen in the distal esophagus. Liver: Moderate amount of free fluid or ascites is seen within the pelvis and mild free fluid or ascites is seen around the liver and spleen within the abdomen. No free air is seen. Liver shows no focal abnormality. Gallbladder and bile ducts: Normal. No calcified stones. No ductal dilation. Pancreas: Normal. No ductal dilation. Spleen: Spleen shows no focal abnormality. Adrenal glands: Normal. No mass. Kidneys and ureters: Tiny hypodense rounded focus within the cortex of the left kidney is too small to characterize and likely tiny renal cortical cyst, appearing chronic with 2020 exam. Kidneys appear unremarkable otherwise. Stomach and bowel: Post suturall anastomosis is seen in the distal sigmoid colon within the pelvis. Air and fluid noted within the colon. There is abnormal conglomerated appearance of small-bowel loops within the mid abdomen, with ill-defined or poorly distinguishable appearance of the wall of small bowel loops in this region, with mixed increased soft tissue and fluid appearance midline and left of midline at this level. This appears to involve the distal duodenum and proximal jejunal level. Findings suggest abnormal inflammatory reaction versus mass involving bowel loops which appear matted. This includes an area of fluid density of 6.5 x 5.5 cm to the left of midline at this which could be related to a dilated fluid-filled loop of small bowel at this level though with inability to exclude developing fluid collection or abscess. Appendix: No evidence of appendicitis. Intraperitoneal space: See Liver finding. Vasculature: Atherosclerotic vascular disease noted without significant aneurysmal dilatation of the abdominal aorta. Lymph nodes: Unremarkable. No enlarged lymph nodes. Urinary bladder: Unremarkable as visualized. Reproductive: Previous hysterectomy. Bones/joints: Unremarkable. No acute fracture. Soft tissues: Unremarkable. CT/CT abdomen pelvis w con* [id number] IMPRESSION: 1. Post sutural anastomosis is seen in the distal sigmoid colon within the pelvis. 2. There is abnormal conglomerated appearance of small-bowel loops within the mid abdomen, with ill-defined or poorly distinguishable appearance of the wall of small bowel loops in this region, with mixed increased soft tissue and fluid appearance midline and left of midline at this level. This appears to involve the distal duodenum and proximal jejunal level. Findings suggest abnormal inflammatory reaction versus mass involving bowel loops which appear matted. This includes an area of fluid density of 6.5 x 5.5 cm to the left of midline at this which could be related to a dilated fluid-filled loop of small bowel at this level though with inability to exclude developing fluid collection or abscess. 3. Moderate ascites within the pelvis and mild free fluid around the liver and spleen. 4. Suggestion of tiny left renal cortical cysts. 5. Atherosclerotic vascular disease.
--- NOTE | 2022-05-30 18:11 | ED_ITS ---
HPI - Abdominal Pain General: Chief Complaint: Abdominal Pain Stated Complaint: ABD PAIN Time Seen by Provider: 05/30/22 17:58 Source: patient and EMS Mode of arrival: EMS Limitations: no limitations History of Present Illness: 67-year-old female states that she had colon cancer had a colectomy back in 2019 she is since then she been having abdominal issues but states that it been worsening she has constipation and diarrhea is worsened over the last 3 weeks she states that overnight started having w orsening pain than typical she states her pain is sharp rates an 8 out of 10 she denies any fever denies any vomiting. Associated Symptoms: Denies chills, dysuria and fever(s) Review of Systems Const: Denies: fever(s), chills, body aches or change in appetite Eyes: Denies: blurry vision or eye discomfort ENMT: Denies: throat pain or dental pain Card: Denies: chest pain Resp: Denies: dyspnea GI: Reports: abdominal pain : Denies: dysuria Musc: Denies: neck pain or back pain Skin/Breast: Denies: rash Neuro: Denies: headache(s) Psych: Denies: depression Lam/Lymph: Denies: easy bruising All/Imm: Denies: urticaria PFSH ED PFSH: Medical History Cancer of sigmoid colon Depression Hypothyroid Pilar cyst Raynauds disease Syncope and collapse Systemic sclerosis with limited cutaneous involvement Vitamin D deficiency Surgical History H/O colonoscopy (04/24/20) 2019 History of colon resection History of hysterectomy History of tonsillectomy History of tubal ligation Family History Father Diabetes Denies family history of Rheumatoid arthritis Lupus CAD (coronary artery disease) Clotting disorder Dementia Chronic kidney disease (CKD) Suicide Anesthesia complication Bleeding disorder Lung disease Cancer Hypertension Stroke Social History Smoking and tobacco status: former smoker Quit status (tobacco): has quit using tobacco Year quit tobacco: 2009 Former quit date comment: smoked 35 yrs Second hand smoke exposure: No Alcohol intake: current Alcohol intake frequency: holidays/special occasions only Lives independently: Yes Household members: spouse Marital status: Current occupational status: retired History of recent travel: No Current gender identity: Female Physical Exam Const: COMMON NORMALS: no acute distress, patient oriented x3 and healthy appearing HENMT: COMMON NORMALS: normocephalic and atraumatic HEAD & SCALP: normocephalic and atraumatic Eye: COMMON NORMALS: Equal, round and reactive pupils present and EOMs intact bilaterally PUPIL: Yes Equal, round and reactive pupils present Neck/C-Spine: COMMON NORMALS: full ROM and supple Chest: COMMONS NORMALS: normal inspection of the chest and normal palpation of entire chest wall Resp: COMMON NORMALS: normal respiratory effort, No retractions, No use of accessory muscles and clear to auscultation bilaterally AUSCULTATION: clear to auscultation bilaterally Cardio: COMMON NORMALS: regular rate, regular rhythm and No murmurs present (Cardio) RATE: regular rate RHYTHM: regular rhythm GI: COMMON NORMALS: Normal to inspection, nondistended, normoactive bowel sounds present, Soft to palpation, non-tender and no masses PALPATION: Yes Soft to palpation Extremity: COMMON NORMALS: normal to inspection and full ROM Neuro: COMMON NORMALS: patient oriented x3, moves all extremities and no focal motor deficits Psych: COMMON NORMALS: mental status grossly normal, Normal thought process present and cooperative THOUGHT PROCESS: Normal thought process present Skin: COMMON NORMALS: no rashes or lesions noted and no wounds GENERAL SKIN EXAM: no rashes or lesions noted Course Vital Signs: Vital signs: Vital Signs Temperature 97.8 F 05/30/22 17:25 Pulse Rate 76 05/30/22 18:00 Respiratory Rate 30 H 05/30/22 18:19 Blood Pressure 134/78 05/30/22 18:00 Pulse Oximetry 95 05/30/22 18:19 Oxygen Delivery Me thod 05/30/22 18:00 MDM - Abdominal Pain Medical Decision Making Patient presents with abdominal pain CT scan here shows findings concerning for either inflammation with an abscess or mass patient is get started on IV a ntibiotics I spoke to surgeon at [facility] and will transfer there as we have no surgery coverage. Lab Data 05/30/22 19:40 05/30/22 19:40 Labs/Radiology: Radiology Impressions Abdomen/Pelvis CT 05/30/22 18:10 IMPRESSION: 1. Post sutural anastomosis is seen in the distal sigmoid colon within the pelvis. 2. There is abnormal conglomerated appearance of small-bowel loops within the mid abdomen, with ill-defined or poorly distinguishable appearance of the wall of small bowel loops in this region, with mixed increased soft tissue and fluid appearance midline and left of midline at this level. This appears to involve the distal duodenum and proximal jejunal level. Findings suggest abnormal inflammatory reaction versus mass involving bowel loops which appear matted. This includes an area of fluid density of 6.5 x 5.5 cm to the left of midline at this which could be related to a dilated fluid-filled loop of small bowel at this level though with inability to exclude developing fluid collection or abscess. 3. Moderate ascites within the pelvis and mild free fluid around the liver and spleen. 4. Suggestion of tiny left renal cortical cysts. 5. Atherosclerotic vascular disease. ADDENDUM: 05/30/229 THIS REPORT CONTAINS FINDINGS THAT MAY BE CRITICAL TO PATIENT CARE. The findings were verbally communicated via telephone conference with KAE RAZA at 10:13 PM GRANULAR OPERATOR on 05/30/2022. The findings were acknowledged and understood. Regarding findings in the mid abdomen, consideration to metastatic process affecting bowel, with a prior history of colon cancer of the sigmoid colon versus inflammatory process affecting bowel, as noted above. There is no history of fever or elevated white blood cell count. Follow-up surgical evaluation suggested. Laboratory Results WBC 11.4 10^3/uL (4.0-10.0) H 05/30/22 19:40 RBC 4.05 10^6/uL (4.1-5.3) L 05/30/22 19:40 Hgb 10.7 g/dL (11.5-15.3) L 05/30/22 19:40 Hct 35.0 % (37.0-47.0) L 05/30/22 19:40 MCV 86.4 fl (81-99) 05/30/22 19:40 MCH 26.4 pg (28.0-34.0) L 05/30/22 19:40 MCHC 30.6 g/dL (30.0-36.0) 05/30/22 19:40 RDW 14.4 % (12.1-15.1) 05/30/22 19:40 Plt Count 390 10^3/cmm (130-400) 05/30/22 19:40 MPV 9.3 fL (7.4-10.4) 05/30/22 19:40 Neut % (Auto) 81.4 % 05/30/22 19:40 Lymph % (Auto) 5.4 % 05/30/22 19:40 [place] % (Auto) 6.1 % 05/30/22 19:40 Eos % (Auto) 6.2 % 05/30/22 19:40 Baso % (Auto) 0.5 % 05/30/22 19:40 Neut # (Auto) 9.28 10^3/uL (1.8-7.7) H 05/30/22 19:40 Lymph # (Auto) 0.6 10^3/uL (0.8-4.8) L 05/30/22 19:40 [place] # (Auto) 0.7 10^3/uL (0.2-0.9) 05/30/22 19:40 Eos # (Auto) 0.7 10^3/uL (0.0-0.8) 05/30/22 19:40 Baso # (Auto) 0.1 10^3/uL (0.0-0.1) 05/30/22 19:40 Nucleated RBC % (auto) 0 % 05/30/22 19:40 Nucleated RBCs # 0.0 /100WBC 05/30/22 19:40 Sodium 133 mmol/L (136-145) L 05/30/22 19:40 Potassium 4.0 mmol/L (3.5-5.1) 05/30/22 19:40 Chloride 97 mmol/L (98-107) L 05/30/22 19:40 Carbon Dioxide 25 mmol/L (22-29) 05/30/22 19:40 Anion Gap 15.0 (5-19) 05/30/22 19:40 BUN 16 mg/dL (8-23) 05/30/22 19:40 Creatinine 0.7 mg/dL (0.5-0.9) 05/30/22 19:40 GFR Calculation 83.5 mL/min (90-130) L 05/30/22 19:40 Glucose 101 mg/dL (65-115) 05/30/22 19:40 Calculated Osmolality 277 mOsm/kg (285-295) L 05/30/22 19:40 Calcium 9.0 mg/dL (8.5-10.5) 05/30/22 19:40 Total Bilirubin 0.4 mg/dL (0.15-1.2) 05/30/22 19:40 AST 20 U/L (0-32) 05/30/22 19:40 ALT 7 U/L (0-33) 05/30/22 19:40 Alkaline Phosphatase 91 U/L (35-105) 05/30/22 19:40 Total Protein 6.9 g/dL (6.6-8.7) 05/30/22 19:40 Albumin 3.7 g/dL (3.5-5.2) 05/30/22 19:40 Globulin 3.2 g/dL (1.3-4.6) 05/30/22 19:40 Lipase 21 U/L (13-60) 05/30/22 19:40 Urine Color Yellow (Yellow) 05/30/22 19:09 Urine Appearance Clear (CLEAR) 05/30/22 19:09 Urine pH 7 (5-7) 05/30/22 19:09 Ur Specific [place] 1.010 (1.005-1.030) 05/30/22 19:09 Urine Protein Neg (Negative) 05/30/22 19:09 Urine Glucose (UA) Norm (Normal) 05/30/22 19:09 Urine Ketones Negative (Negative) 05/30/22 19:09 Urine Blood Neg (Negative) 05/30/22 19:09 Urine Nitrate Negative (Negative) 05/30/22 19:09 Urine Bilirubin Neg (Negative) 05/30/22 19:09 Urine Urobilinogen Neg mg/dL (Negative) 05/30/22 19:09 Ur Leukocyte Esterase Negative (Negative) 05/30/22 19:09 Discharge Plan Discharge Patient Disposition: Xfer Short-Term Hosp Clinical Impression: Abdominal pain Condition: Stable Referrals: Massiel Cazares MD [Primary Care Provider] - Patient Instructions: Abdominal Pain (ED) Coding Level of Care Code ED Specialty Development Consultant for Chg Fwd Exam Comprehensive
[2022-05-30 18:19] VITALS: RESP 30; O2SAT 95
[2022-05-30] MEDS: morphine 4 mg/mL SDV 1 mL IVP (18:19)
[2022-05-30] MEDS: ondansetron 2 mg/ML SDV 2 mL 4 MG IVP (18:20)
[2022-05-30 19:28] LABS: Add Urine Microscopic? NO; Charge for UA Resulting for Rev
[2022-05-30 19:38] LABS: Bilirubin Urine Neg (Negative); Blood Urine Neg (Negative); Glucose Urine UA Norm (Normal); Ketones Urine Negative (Negative); Leukocyte Esterase Urine Negative (Negative); Nitrate Urine Negative (Negative); Protein Urine Neg (Negative); Urine Appearance Clear (CLEAR); Urine Color Yellow (Yellow); Urobilinogen Urine Neg (Negative); pH Urine 7 (5-7)
[2022-05-30 19:59] LABS: Basophils # 0.1 10^3/uL (0.0-0.1); Basophils % 0.5 %; Eosinophils # 0.7 10^3/uL (0.0-0.8); Eosinophils % 6.2 %; Hemoglobin 10.7 g/dL (11.5-15.3); Lymphocytes # 0.6 10^3/uL (0.8-4.8); Lymphocytes % 5.4 %; Mean Corpuscular HGB Conc 30.6 g/dL (30.0-36.0); Mean Corpuscular Hemoglobin 26.4 pg (28.0-34.0); Mean Corpuscular Volume 86.4 fl (81-99); Mean Platelet Volume 9.3 fL (7.4-10.4); Monocytes # 0.7 10^3/uL (0.2-0.9); Monocytes % 6.1 %; Neutrophils # 9.28 10^3/uL (1.8-7.7); Neutrophils % 81.4 %; Nucleated Red Blood Cells % 0 %; Platelet Count 390 10^3/cmm (130-400); Red Blood Count 4.05 10^6/uL (4.1-5.3); Red Cell Distribution Width 14.4 % (12.1-15.1); White Blood Count 11.4 10^3/uL (4.0-10.0)
[2022-05-30 20:40] LABS: Alanine Aminotransferase 7 U/L (0-33); Albumin Level 3.7 g/dL (3.5-5.2); Alkaline Phosphatase 91 U/L (35-105); Aspartate Amino Transferase 20 U/L (0-32); Blood Urea Nitrogen 16 mg/dL (8-23); Carbon Dioxide 25 mmol/L (22-29); Chloride 97 mmol/L (98-107); Globulin 3.2 g/dL (1.3-4.6); Glomerular Filtration Rate 83.5 mL/min (90-130); Glucose 101 mg/dL (65-115); Lipase 21 U/L (13-60); Osmolality Calculated 277 mOsm/kg (285-295); Sodium 133 mmol/L (136-145); Total Bilirubin 0.4 mg/dL (0.15-1.2); Total Protein 6.9 g/dL (6.6-8.7)
[2022-05-30] MEDS: iohexol 350 mg/mL 500 mL Btl (per mL) IV (20:44)
[2022-05-30] MEDS: ciprofloxacin 400 MG/200 ML PREMIX 200 MG IV (23:29)
[2022-05-30 23:30] VITALS: BP 125/69; PULSE 92; RESP 16; O2SAT 94
[2022-05-30] MEDS: metroNIDAZOLE IV 500 MG/100 ML PREMIX 100 MG IV (23:30)
[2022-05-31] MEDS: HYDROmorphone 1 mg/mL INJ 1 mL IVP (00:27)
[2022-05-31] MEDS: ondansetron 2 mg/ML SDV 2 mL 4 MG IVP (00:27)
[2022-05-31 00:30] VITALS: BP 101/66; PULSE 73; RESP 19; O2SAT 97
[2022-05-31 01:30] VITALS: BP 113/57; PULSE 68; RESP 16; O2SAT 98
[2022-05-31 02:30] VITALS: BP 107/55; PULSE 74; RESP 21; O2SAT 99
[2022-05-31 03:30] VITALS: BP 100/53; PULSE 78; RESP 19; O2SAT 99
== END 2022-05-31 03:45 | disposition short-term general hospital (02) ==
PROVIDERS: Emergency Medicine; Emergency Provider Emergency Medicine; PCP Family Medicine
DX: R10.9 Unspecified abdominal pain (principal); Z87.891 Personal history of nicotine dependence; Z85.038 Personal history of other malignant neoplasm of large intestine
CPT/HCPCS: 74177; 80053; 81003; 83690; 85025; 96365; 96366; 96367; 96375; 96376; 99285; J0744; J1170; J2270; J2405; J3490; Q9967